=== PATIENT | female | born 1980 | race Caucasian/White ===

== ENCOUNTER → 2023-09-10 | Emergency (ER) | payer BC ==
[~2023-09-10] MED LIST: LEVALBUTEROL 1.25 MG/3 ML NEB ONE; NA CHLORIDE 0.9% 1,000 ML ONE; ONDANSETRON 4 MG/2 ML VIAL ONE; dexAMETHasone 10 MG/ML VIAL ONE
--- OUTSIDE RECORDS SUMMARY | 2023-09-10 20:27 | XMS REPORT | Continuity of Care Document ---
Author Name Unknown Address [address] [place] [address] [facility] Address [address] [place] [address] Care Team Providers Care Band Edger Name Role Phone Adelaida Crum Primary Care Physician + AARON HUNTER Attending Clinician Unavailable AARON HUNTER Attending Clinician Unavailable MAGALIS KIM Attending Clinician Unavail able Magalis Kim MD Attending Clinician [phone] Aaron Hunter MD Attending Clinician [phone] Doctor Unassigned, [place] Attending Clinician U navailable Yuri NUTRITION AND DIETETICS INSTRUCTOR-Adelaida CRENSHAW Attending Clinician Pgy2 Attending Clinician Unavailable aHley Taylor MD Attending Clinician [phone] HALEY TAYLOR Attending Clinician Unavailable Jacinta Breaux MA Attending Clinician Unavaila ble Pgy3 Attending Clinician Unavailable KAREN JUNG Attending Clinician Unavailable Karen Jung MD Attending Clinician [phone] Mary Kingsley MD Attending Clinician [phone] TEZ SANTIAGO Attending Clinician Unavailable Tez Santiago MD Attending Clinician [phone] ALYSON OLSEN Attending Clinician UnavailALYSON Shoemaker Attending Clinician Unavailabl e Provider, [facility] Temp Attending Clinician Desi HEATHER Burgos Attending Clinician Unavailable Chavez MD, Heather T Attending Clinician [phone] ENMA MURILLO Attending Clinician Unavail able Enma Carballo Attending Clinician + [facility] Attending Clinician Unavailable Jose L Carmona Attending Clinician [phone] JOSE L CURRAN Attending Clinician Unavailable ALIVIA FERNANDEZ Attending Clinician Unavailable Alivia Fernandez MD Attending Clinician [phone] Priya Stephens MD Attending Clinician [phone] PRIYA STEPHENS Attending Clinician Unavailable AARON HUNTER Admitting Clinician Unavailable HEATHER CHAVEZ Admitting Clinician Unavailable ENMA MURILLO Admitting Clinician Unavail able TEZ SANTIAGO Admitting Clinician Unavailable PRIYA STEPHENS Admitting Clinician Unavailable Payers Payer Name Policy Type Policy Number Effective Date Expirati on Date Source BCBS [facility] STATE [id number] 2022 00:00:00 Problems Condition Name Condition Details Condition Category Status Onset Date Resolution Date Last Treatment Date Treating Clinician Comments Source Other general counseling and advice for contracept estefany management Other general counseling and advice for contracept estefany management Disease Active 11-14 00:00: 00 [facility] Essential hypertensi on, benign Essential hypertensi on, benign Disease Active 11-14 00:00: 00 [facility] Morbid obesity Morbid obesity Disease Active 11-14 00:00: 00 [facility] History of tubal ligation History of tubal ligation Disease Active 11-14 00:00: 00 Overview: Formattin g of this note might be different from the original. Reports history of novasure [facility] Allergies, Adverse Reactions, Alerts Allergy Name Allergy Type Status Severity Reaction(s) Onset Date Inactive Date Treating Clinician Comments Source Azithrom ycin Propensi ty to adverse reaction s Active Nausea and/or Vomiting 10-15 00:00: 00 [facility] AZITHROM YCIN DRUG INGREDI Active N/V 10-15 00:00: 00 [facility] Social History Social Habit Start Date Stop Date Quantity Comments Source History [facility] History SDOH Alcohol Comment [facility] History SDOH Social Connections Membership [facility] Gender identity [facility] Exposure to SARS-CoV-2 (event) 2022-08-02 00:00:00 2022-08-12 08:00:00 Not sure [facility] Alcohol intake 2022-08-12 00:00:00 2022-08-12 00:00:00 Ex-drinker (finding) [facility] Tobacco use and exposure 2022-03-02 00:00:00 2022-03-02 00:00:00 Smokeless tobacco non-user [facility] History SDOH Alcohol Frequency 2022-02-27 00:00:00 2022-02-27 00:00:00 1 [facility] History SDOH Alcohol Binge 2022-02-27 00:00:00 2022-02-27 00:00:00 1 [facility] History SDOH Social Connections Phone 2022-02-27 00:00:00 2022-02-27 00:00:00 5 [facility] History SDOH Social Connections Get Together 2022-02-27 00:00:00 2022-02-27 00:00:00 1 [facility] History SDOH Social Connections Congregation 2022-02-27 00:00:00 2022-02-27 00:00:00 1 [facility] History SDOH Social Connections Meetings 2022-02-27 00:00:00 2022-02-27 00:00:00 1 [facility] History SDOH Social Connections Living 2022-02-27 00:00:00 2022-02-27 00:00:00 5 [facility] History SDOH Physical Activity DPW 2022-02-27 00:00:00 2022-02-27 00:00:00 2 [facility] History SDOH Physical Activity MPS 2022-02-27 00:00:00 2022-02-27 00:00:00 3 [facility] History SDOH Stress 2022-02-27 00:00:00 2022-02-27 00:00:00 5 [facility] History SDOH Financial 2022-02-27 00:00:00 2022-02-27 00:00:00 2 [facility] History SDOH Food Worry 2022-02-27 00:00:00 2022-02-27 00:00:00 1 [facility] History SDOH Food Scarcity 2022-02-27 00:00:00 2022-02-27 00:00:00 2 [facility] History SDOH Transport Med 2022-02-27 00:00:00 2022-02-27 00:00:00 2 [facility] History SDOH Transport Non-Med 2022-02-27 00:00:00 2022-02-27 00:00:00 2 [facility] History of Social function 2022-02-27 00:00:00 2022-02-27 00:00:00 [facility] Sex Ass[birth year] At 1980 00:00:00 1980 00:00:00 [facility] Smoking Status Start Date Stop Date Source Never smoked tobacco [facility] Medications Ordered Medication Name Filled Medication Name Start Date Stop Date Current Medication? Ordering Clinician Indication Dosage Frequency Signature (SIG) Comments Components Source HYDROCHLORO THIAZIDE 12.5 mg capsule 01-27 00:00: 00 Yes [id number] TAKE ONE CAPSULE BY MOUTH EVERY MORNING [facility] HYDROCHLORO THIAZIDE 12.5 mg capsule 01-27 00:00: 00 Yes [id number] TAKE ONE CAPSULE BY MOUTH EVERY MORNING [facility] HYDROCHLORO THIAZIDE 12.5 mg capsule 01-27 00:00: 00 Yes [id number] TAKE ONE CAPSULE BY MOUTH EVERY MORNING [facility] MELOXICAM 15 mg tablet 0 10-21 00:00: 00 Yes [id number] TAKE ONE TABLET BY MOUTH EVERY MORNING [facility] MELOXICAM 15 mg tablet 2022-0 10-21 00:00: 00 Yes [id number] TAKE ONE TABLET BY MOUTH EVERY MORNING [facility] MELOXICAM 15 mg tablet 2022-0 10-21 00:00: 00 Yes [id number] TAKE ONE TABLET BY MOUTH EVERY MORNING [facility] MELOXICAM 15 mg tablet 2022-0 329 00:00: 00 Yes [id number] TAKE ONE TABLET BY MOUTH EVERY MORNING [facility] MELOXICAM 15 mg tablet 2022-0 3 00:00: 00 Yes [id number] TAKE ONE TABLET BY MOUTH EVERY MORNING [facility] MELOXICAM 15 mg tablet 2022-0 3 00:00: 00 Yes [id number] TAKE ONE TABLET BY MOUTH EVERY MORNING [facility] cyclobenzap rine 5 mg tablet 2022-0 3 00:00: 00 Yes [id number] 5mg Take 1 tablet by mouth at bedtime. [facility] cyclobenzap rine 5 mg tablet 2022-0 3 00:00: 00 Yes [id number] 5mg Take 1 tablet by mouth at bedtime. [facility] cyclobenzap rine 5 mg tablet 2022-0 3 00:00: 00 Yes [id number] 5mg Take 1 tablet by mouth at bedtime. [facility] cyclobenzap rine 5 mg tablet 2022-0 3 00:00: 00 Yes [id number] 5mg Take 1 tablet by mouth at bedtime. [facility] cyclobenzap rine 5 mg tablet 2022-0 3 00:00: 00 Yes [id number] 5mg Take 1 tablet by mouth at bedtime. [facility] cyclobenzap rine 5 mg tablet 2022-0 326 00:00: 00 Yes [id number] 5mg Take 1 tablet by mouth at bedtime. [facility] meloxicam 15 mg tablet 3-0 1-18 00:00: 00 Yes [id number] 15mg Take 1 tablet by mouth in the morning. [facility] cyclobenzap rine 5 mg tablet 3-0 1-18 00:00: 00 Yes [id number] 5mg Take 1 tablet by mouth at bedtime. [facility] meloxicam 15 mg tablet 3-0 1-18 00:00: 00 Yes [id number] 15mg Take 1 tablet by mouth in the morning. [facility] cyclobenzap rine 5 mg tablet 3-0 1-18 00:00: 00 Yes [id number] 5mg Take 1 tablet by mouth at bedtime. [facility] meloxicam 15 mg tablet 3-0 1-18 00:00: 00 Yes [id number] 15mg Take 1 tablet by mouth in the morning. [facility] cyclobenzap rine 5 mg tablet 3-0 1-18 00:00: 00 Yes [id number] 5mg Take 1 tablet by mouth at bedtime. [facility] meloxicam 15 mg tablet 3-0 1-18 00:00: 00 Yes [id number] 15mg Take 1 tablet by mouth in the morning. [facility] cyclobenzap rine 5 mg tablet 2022-0 1-18 00:00: 00 Yes [id number] 5mg Take 1 tablet by mouth at bedtime. [facility] meloxicam 15 mg tablet 3-0 1-18 00:00: 00 Yes [id number] 15mg Take 1 tablet by mouth in the morning. [facility] cyclobenzap rine 5 mg tablet 2022-0 -18 00:00: 00 Yes [id number] 5mg Take 1 tablet by mouth at bedtime. [facility] meloxicam 15 mg tablet 2022-0 -18 00:00: 00 Yes [id number] 15mg Take 1 tablet by mouth in the morning. [facility] cyclobenzap rine 5 mg tablet 3-0 -18 00:00: 00 Yes [id number] 5mg Take 1 tablet by mouth at bedtime. [facility] medroxyPROG ESTERone (PROVERA) 10 mg tablet 2022-0 -18 00:00: 00 18 04:59 :00 No [id number] 100 20mg Take 2 tablets by mouth in the morning for 180 days. [facility] medroxyPROG ESTERone (PROVERA) 10 mg tablet 3-0 1-18 00:00: 00 18 04:59 :00 No [id number] 100 20mg Take 2 tablets by mouth in the morning for 180 days. [facility] medroxyPROG ESTERone (PROVERA) 10 mg tablet 2022-0 1-18 00:00: 00 02-09 04:59 :00 No [id number] 100 20mg Take 2 tablets by mouth in the morning for 180 days. [facility] medroxyPROG ESTERone (PROVERA) 10 mg tablet 2022-0 1-18 00:00: 00 02-09 04:59 :00 No [id number] 100 20mg Take 2 tablets by mouth in the morning for 180 days. [facility] medroxyPROG ESTERone (PROVERA) 10 mg tablet 2022-0 1-18 00:00: 00 02-09 04:59 :00 No [id number] 100 20mg Take 2 tablets by mouth in the morning for 180 days. [facility] medroxyPROG ESTERone (PROVERA) 10 mg tablet 2022-0 18 00:00: 00 02-09 04:59 :00 No [id number] 100 20mg Take 2 tablets by mouth in the morning for 180 days. [facility] medroxyPROG ESTERone (PROVERA) 10 mg tablet 0 18 00:00: 00 02-09 04:59 :00 No [id number] 100 20mg Take 2 tablets by mouth in the morning for 180 days. [facility] tranexamic acid 650 mg tablet 0 18 00:00: 00 09-12 05:59 :00 No [id number] 100 1300mg Take 2 tablets by mouth in the morning and 2 tablets at noon and 2 tablets in the evening. Do all this for 30 days. [facility] tranexamic acid 650 mg tablet 2022-0 1-18 00:00: 00 09-12 05:59 :00 No [id number] 100 1300mg Take 2 tablets by mouth in the morning and 2 tablets at noon and 2 tablets in the evening. Do all this for 30 days. [facility] tranexamic acid 650 mg tablet 2022-0 1-18 00:00: 00 09-12 05:59 :00 No [id number] 100 1300mg Take 2 tablets by mouth in the morning and 2 tablets at noon and 2 tablets in the evening. Do all this for 30 days. [facility] tranexamic acid 650 mg tablet 08-12 00:00: 00 09-12 05:59 :00 No [id number] 100 1300mg Take 2 tablets by mouth in the morning and 2 tablets at noon and 2 tablets in the evening. Do all this for 30 days. [facility] tranexamic acid 650 mg tablet 08-12 00:00: 00 09-12 05:59 :00 No [id number] 100 1300mg Take 2 tablets by mouth in the morning and 2 tablets at noon and 2 tablets in the evening. Do all this for 30 days. [facility] tranexamic acid 650 mg tablet 08-12 00:00: 00 09-12 05:59 :00 No [id number] 100 1300mg Take 2 tablets by mouth in the morning and 2 tablets at noon and 2 tablets in the evening. Do all this for 30 days. [facility] buPROPion XL (WELLBUTRIN XL) 150 mg 24 hr tablet 2021-07 00:00: 00 Yes [id number] 150mg Take 1 tablet by mouth in the morning. [facility] SERTraline 50 mg tablet 2021-07 00:00: 00 Yes [id number] 50mg Take 1 tablet by mouth in the morning. [facility] buPROPion XL (WELLBUTRIN XL) 150 mg 24 hr tablet 2021-07 00:00: 00 Yes [id number] 150mg Take 1 tablet by mouth in the morning. [facility] SERTraline 50 mg tablet 2021-07 00:00: 00 Yes [id number] 50mg Take 1 tablet by mouth in the morning. [facility] buPROPion XL (WELLBUTRIN XL) 150 mg 24 hr tablet 2021-07 00:00: 00 Yes [id number] 150mg Take 1 tablet by mouth in the morning. [facility] SERTraline 50 mg tablet 2021-07 2- 00:00: 00 Yes [id number] 50mg Take 1 tablet by mouth in the morning. [facility]LLBUTRIN XL[facility] 150 mg 24 hr tablet 2021-07 00:00: 00 Yes [id number] 150mg Take 1 tablet by mouth in the morning. [facility] SERTraline 50 mg tablet 2021-07 00:00: 00 Yes [id number] 50mg Take 1 tablet by mouth in the morning. [facility] buPROPion XL (WELLBUTRIN XL) 150 mg 24 hr tablet 2021-07 00:00: 00 Yes [id number] 150mg Take 1 tablet by mouth in the morning. [facility] SERTraline 50 mg tablet 2021-07 00:00: 00 Yes [id number] 50mg Take 1 tablet by mouth in the morning. [facility] buPROPion XL (WELLBUTRIN XL) 150 mg 24 hr tablet 2021-07 00:00: 00 Yes [id number] 150mg Take 1 tablet by mouth in the morning. [facility] SERTraline 50 mg tablet 2021-07 00:00: 00 Yes [id number] 50mg Take 1 tablet by mouth in the morning. [facility] buPROPion XL (WELLBUTRIN XL) 150 mg 24 hr tablet 2021-07 00:00: 00 Yes [id number] 150mg Take 1 tablet by mouth in the morning. [facility] SERTraline 50 mg tablet 2021-07 00:00: 00 Yes [id number] 50mg Take 1 tablet by mouth in the morning. [facility] buPROPion XL (WELLBUTRIN XL) 150 mg 24 hr tablet 2021-07 00:00: 00 Yes [id number] 150mg Take 1 tablet by mouth in the morning. [facility] SERTraline 50 mg tablet 2021-07 00:00: 00 Yes [id number] 50mg Take 1 tablet by mouth in the morning. [facility] buPROPion XL (WELLBUTRIN XL) 150 mg 24 hr tablet 2021-07 00:00: 00 Yes [id number] 150mg Take 1 tablet by mouth in the morning. [facility] SERTraline 50 mg tablet 2021-07 00:00: 00 Yes [id number] 50mg Take 1 tablet by mouth in the morning. [facility] buPROPion XL (WELLBUTRIN XL) 150 mg 24 hr tablet 2021-07 00:00: 00 Yes [id number] 150mg Take 1 tablet by mouth in the morning. [facility] SERTraline 50 mg tablet 2021-07 00:00: 00 Yes [id number] 50mg Take 1 tablet by mouth in the morning. [facility] buPROPion XL (WELLBUTRIN XL) 150 mg 24 hr tablet 2021-07 00:00: 00 Yes [id number] 150mg Take 1 tablet by mouth in the morning. [facility] SERTraline 50 mg tablet 2021-07 00:00: 00 Yes [id number] 50mg Take 1 tablet by mouth in the morning. [facility] buPROPion XL (WELLBUTRIN XL) 150 mg 24 hr tablet 2021-07 00:00: 00 Yes [id number] 150mg Take 1 tablet by mouth in the morning. [facility] SERTraline 50 mg tablet 2021-07 00:00: 00 Yes [id number] 50mg Take 1 tablet by mouth in the morning. [facility] buPROPion XL (WELLBUTRIN XL) 150 mg 24 hr tablet 2021-07 00:00: 00 Yes [id number] 150mg Take 1 tablet by mouth in the morning. [facility] SERTraline 50 mg tablet 2021-07 00:00: 00 Yes [id number] 50mg Take 1 tablet by mouth in the morning. [facility] buPROPion XL (WELLBUTRIN XL) 150 mg 24 hr tablet 2021-07 00:00: 00 Yes [id number] 150mg Take 1 tablet by mouth in the morning. [facility] SERTraline 50 mg tablet 2021-07 00:00: 00 Yes [id number] 50mg Take 1 tablet by mouth in the morning. [facility] buPROPion XL (WELLBUTRIN XL) 150 mg 24 hr tablet 2021-07 00:00: 00 Yes [id number] 150mg Take 1 tablet by mouth in the morning. [facility] SERTraline 50 mg tablet 2021-07 00:00: 00 Yes [id number] 50mg Take 1 tablet by mouth in the morning. [facility] buPROPion XL (WELLBUTRIN XL) 150 mg 24 hr tablet 2021-07 00:00: 00 Yes [id number] 150mg Take 1 tablet by mouth in the morning. [facility] SERTraline 50 mg tablet 2021-07 00:00: 00 Yes [id number] 50mg Take 1 tablet by mouth in the morning. [facility] buPROPion XL (WELLBUTRIN XL) 150 mg 24 hr tablet 2021-07 00:00: 00 Yes [id number] 150mg Take 1 tablet by mouth in the morning. [facility] SERTraline 50 mg tablet 2021-07 00:00: 00 Yes [id number] 50mg Take 1 tablet by mouth in the morning. [facility] buPROPion XL (WELLBUTRIN XL) 150 mg 24 hr tablet 2021-07 00:00: 00 Yes [id number] 150mg Take 1 tablet by mouth in the morning. [facility] SERTraline 50 mg tablet 2021-07 00:00: 00 Yes [id number] 50mg Take 1 tablet by mouth in the morning. [facility] medroxyPROG ESTERone (PROVERA) 10 mg tablet 2021-07 00:00: 00 Yes [id number] 100 20mg Take 2 tablets by mouth in the morning. [facility] tranexamic acid 650 mg tablet 2021-07 00:00: 00 Yes [id number] 100 1300mg Take 2 tablets by mouth in the morning and 2 tablets at noon and 2 tablets in the evening. [facility] medroxyPROG ESTERone (PROVERA) 10 mg tablet 2021-07 00:00: 00 Yes [id number] 100 20mg Take 2 tablets by mouth in the morning. [facility] tranexamic acid 650 mg tablet 2021-07 00:00: 00 Yes [id number] 100 1300mg Take 2 tablets by mouth in the morning and 2 tablets at noon and 2 tablets in the evening. [facility] medroxyPROG ESTERone (PROVERA) 10 mg tablet 2021-07 00:00: 00 Yes [id number] 100 20mg Take 2 tablets by mouth in the morning. [facility] tranexamic acid 650 mg tablet 2021-07 00:00: 00 Yes [id number] 100 1300mg Take 2 tablets by mouth in the morning and 2 tablets at noon and 2 tablets in the evening. [facility] medroxyPROG ESTERone (PROVERA) 10 mg tablet 2021-07 00:00: 00 Yes [id number] 100 20mg Take 2 tablets by mouth in the morning. [facility] tranexamic acid 650 mg tablet 2021-07 00:00: 00 Yes [id number] 100 1300mg Take 2 tablets by mouth in the morning and 2 tablets at noon and 2 tablets in the evening. [facility] medroxyPROG ESTERone (PROVERA) 10 mg tablet 2021-07 00:00: 00 Yes [id number] 100 20mg Take 2 tablets by mouth in the morning. [facility] tranexamic acid 650 mg tablet 2021-07 00:00: 00 Yes [id number] 100 1300mg Take 2 tablets by mouth in the morning and 2 tablets at noon and 2 tablets in the evening. [facility] medroxyPROG ESTERone (PROVERA) 10 mg tablet 2021-07 00:00: 00 Yes [id number] 100 20mg Take 2 tablets by mouth in the morning. [facility] tranexamic acid 650 mg tablet 2021-07 00:00: 00 Yes [id number] 100 1300mg Take 2 tablets by mouth in the morning and 2 tablets at noon and 2 tablets in the evening. [facility] medroxyPROG ESTERone (PROVERA) 10 mg tablet 2021-07 00:00: 00 Yes [id number] 100 20mg Take 2 tablets by mouth in the morning. [facility] tranexamic acid 650 mg tablet 2021-07 00:00: 00 Yes [id number] 100 1300mg Take 2 tablets by mouth in the morning and 2 tablets at noon and 2 tablets in the evening. [facility] medroxyPROG ESTERone (PROVERA) 10 mg tablet 2021-07 00:00: 00 Yes [id number] 100 20mg Take 2 tablets by mouth in the morning. [facility] tranexamic acid 650 mg tablet 2021-07 00:00: 00 Yes [id number] 100 1300mg Take 2 tablets by mouth in the morning and 2 tablets at noon and 2 tablets in the evening. [facility] medroxyPROG ESTERone (PROVERA) 10 mg tablet 2021-07 00:00: 00 Yes [id number] 100 20mg Take 2 tablets by mouth in the morning. [facility] tranexamic acid 650 mg tablet 2021-07 00:00: 00 Yes [id number] 100 1300mg Take 2 tablets by mouth in the morning and 2 tablets at noon and 2 tablets in the evening. [facility] medroxyPROG ESTERone (PROVERA) 10 mg tablet 2021-07 00:00: 00 Yes [id number] 100 20mg Take 2 tablets by mouth in the morning. [facility] tranexamic acid 650 mg tablet 2021-07 00:00: 00 Yes [id number] 100 1300mg Take 2 tablets by mouth in the morning and 2 tablets at noon and 2 tablets in the evening. [facility] medroxyPROG ESTERone (PROVERA) 10 mg tablet 2021-07 00:00: 00 Yes [id number] 100 20mg Take 2 tablets by mouth in the morning. [facility] tranexamic acid 650 mg tablet 2021-07 00:00: 00 Yes [id number] 100 1300mg Take 2 tablets by mouth in the morning and 2 tablets at noon and 2 tablets in the evening. [facility] medroxyPROG ESTERone (PROVERA) 10 mg tablet 2021-07 00:00: 00 Yes [id number] 100 20mg Take 2 tablets by mouth in the morning. [facility] tranexamic acid 650 mg tablet 2021-07 00:00: 00 Yes [id number] 100 1300mg Take 2 tablets by mouth in the morning and 2 tablets at noon and 2 tablets in the evening. [facility] medroxyPROG ESTERone (PROVERA) 10 mg tablet 2021-07 00:00: 00 Yes [id number] 100 20mg Take 2 tablets by mouth in the morning. [facility] tranexamic acid 650 mg tablet 2021-07 00:00: 00 Yes [id number] 100 1300mg Take 2 tablets by mouth in the morning and 2 tablets at noon and 2 tablets in the evening. [facility] medroxyPROG ESTERone (PROVERA) 10 mg tablet 2021-07 00:00: 00 Yes [id number] 100 20mg Take 2 tablets by mouth in the morning. [facility] tranexamic acid 650 mg tablet 2021-07 00:00: 00 Yes [id number] 100 1300mg Take 2 tablets by mouth in the morning and 2 tablets at noon and 2 tablets in the evening. [facility] medroxyPROG ESTERone (PROVERA) 10 mg tablet 2021-07 00:00: 00 Yes [id number] 100 20mg Take 2 tablets by mouth in the morning. [facility] tranexamic acid 650 mg tablet 2021-07 00:00: 00 Yes [id number] 100 1300mg Take 2 tablets by mouth in the morning and 2 tablets at noon and 2 tablets in the evening. [facility] medroxyPROG ESTERone (PROVERA) 10 mg tablet 2021-07 00:00: 00 Yes [id number] 100 20mg Take 2 tablets by mouth in the morning. [facility] tranexamic acid 650 mg tablet 2021-07 00:00: 00 Yes [id number] 100 1300mg Take 2 tablets by mouth in the morning and 2 tablets at noon and 2 tablets in the evening. [facility] medroxyPROG ESTERone (PROVERA) 10 mg tablet 2021-07 00:00: 00 Yes [id number] 100 20mg Take 2 tablets by mouth in the morning. [facility] tranexamic acid 650 mg tablet 2021-07 00:00: 00 Yes [id number] 100 1300mg Take 2 tablets by mouth in the morning and 2 tablets at noon and 2 tablets in the evening. [facility] medroxyPROG ESTERone (PROVERA) 10 mg tablet 2021-07 00:00: 00 Yes [id number] 100 20mg Take 2 tablets by mouth in the morning. [facility] tranexamic acid 650 mg tablet 2021-07 00:00: 00 Yes [id number] 100 1300mg Take 2 tablets by mouth in the morning and 2 tablets at noon and 2 tablets in the evening. [facility] medroxyPROG ESTERone (PROVERA) 10 mg tablet 2021-07 00:00: 00 Yes [id number] 100 20mg Take 2 tablets by mouth in the morning. [facility] tranexamic acid 650 mg tablet 2021-07 00:00: 00 Yes [id number] 100 1300mg Take 2 tablets by mouth in the morning and 2 tablets at noon and 2 tablets in the evening. [facility] medroxyPROG ESTERone (PROVERA) 10 mg tablet 2021-07 00:00: 00 Yes [id number] 100 20mg Take 2 tablets by mouth in the morning. [facility] tranexamic acid 650 mg tablet 2021-07 00:00: 00 Yes [id number] 100 1300mg Take 2 tablets by mouth in the morning and 2 tablets at noon and 2 tablets in the evening. [facility] medroxyPROG ESTERone (PROVERA) 10 mg tablet 2021-07 00:00: 00 Yes [id number] 100 20mg Take 2 tablets by mouth in the morning. [facility] tranexamic acid 650 mg tablet 2021-07 00:00: 00 Yes [id number] 100 1300mg Take 2 tablets by mouth in the morning and 2 tablets at noon and 2 tablets in the evening. [facility] hydroCHLORO thiazide 12.5 mg capsule 2021-07 00:00: 00 Yes [id number] 12.5mg Take 1 capsule by mouth in the morning. [facility] hydroCHLORO thiazide 12.5 mg capsule 2021-07 00:00: 00 Yes [id number] 12.5mg Take 1 capsule by mouth in the morning. [facility] hydroCHLORO thiazide 12.5 mg capsule 2021-07 00:00: 00 Yes [id number] 12.5mg Take 1 capsule by mouth in the morning. [facility] hydroCHLORO thiazide 12.5 mg capsule 2021-07 00:00: 00 Yes [id number] 12.5mg Take 1 capsule by mouth in the morning. [facility] hydroCHLORO thiazide 12.5 mg capsule 2021-07 00:00: 00 Yes [id number] 12.5mg Take 1 capsule by mouth in the morning. [facility] hydroCHLORO thiazide 12.5 mg capsule 2021-07 00:00: 00 Yes [id number] 12.5mg Take 1 capsule by mouth in the morning. [facility] hydroCHLORO thiazide 12.5 mg capsule 2021-07 00:00: 00 Yes [id number] 12.5mg Take 1 capsule by mouth in the morning. [facility] hydroCHLORO thiazide 12.5 mg capsule 2021-07 00:00: 00 Yes [id number] 12.5mg Take 1 capsule by mouth in the morning. [facility] hydroCHLORO thiazide 12.5 mg capsule 2021-07 00:00: 00 Yes [id number] 12.5mg Take 1 capsule by mouth in the morning. [facility] hydroCHLORO thiazide 12.5 mg capsule 2021-07 00:00: 00 Yes [id number] 12.5mg Take 1 capsule by mouth in the morning. [facility] hydroCHLORO thiazide 12.5 mg capsule 2021-0715 00:00: 00 Yes [id number] 12.5mg Take 1 capsule by mouth in the morning. [facility] hydroCHLORO thiazide 12.5 mg capsule 2021-0715 00:00: 00 Yes [id number] 12.5mg Take 1 capsule by mouth in the morning. [facility] hydroCHLORO thiazide 12.5 mg capsule 2021-0715 00:00: 00 Yes [id number] 12.5mg Take 1 capsule by mouth in the morning. [facility] medroxyPROG ESTERone (PROVERA) 10 mg tablet 2021-07 0- 00:00: 00 Yes [id number] 100 20mg Take 2 tablets by mouth in the morning. [facility] medroxyPROG ESTERone (PROVERA) 10 mg tablet 2021-07 0 00:00: 00 Yes [id number] 100 20mg Take 2 tablets by mouth in the morning. [facility] medroxyPROG ESTERone (PROVERA) 10 mg tablet 2021-07 028 00:00: 00 Yes [id number] 100 20mg Take 2 tablets by mouth in the morning. [facility] medroxyPROG ESTERone (PROVERA) 10 mg tablet 2021-07 0 00:00: 00 Yes [id number] 100 20mg Take 2 tablets by mouth in the morning. [facility] medroxyPROG ESTERone (PROVERA) 10 mg tablet 2021-07 028 00:00: 00 Yes [id number] 100 20mg Take 2 tablets by mouth in the morning. [facility] medroxyPROG ESTERone (PROVERA) 10 mg tablet 2021-07 0-28 00:00: 00 Yes [id number] 100 20mg Take 2 tablets by mouth in the morning. [facility] medroxyPROG ESTERone (PROVERA) 10 mg tablet 2021-07 0-28 00:00: 00 Yes [id number] 100 20mg Take 2 tablets by mouth in the morning. [facility] medroxyPROG ESTERone (PROVERA) 10 mg tablet 2021-07 0-28 00:00: 00 Yes [id number] 100 20mg Take 2 tablets by mouth in the morning. [facility] medroxyPROG ESTERone (PROVERA) 10 mg tablet 2021-07 0-28 00:00: 00 Yes [id number] 100 20mg Take 2 tablets by mouth in the morning. [facility] medroxyPROG ESTERone (PROVERA) 10 mg tablet 2021-07 0-28 00:00: 00 Yes [id number] 100 20mg Take 2 tablets by mouth in the morning. [facility] medroxyPROG ESTERone (PROVERA) 10 mg tablet 2021-07 0-28 00:00: 00 Yes [id number] 100 20mg Take 2 tablets by mouth in the morning. [facility] medroxyPROG ESTERone (PROVERA) 10 mg tablet 2021-07 0 00:00: 00 Yes [id number] 100 20mg Take 2 tablets by mouth in the morning. [facility] medroxyPROG ESTERone (PROVERA) 10 mg tablet 2021-07 028 00:00: 00 Yes [id number] 100 20mg Take 2 tablets by mouth in the morning. [facility] medroxyPROG ESTERone (PROVERA) 10 mg tablet 2021-07 028 00:00: 00 Yes [id number] 100 20mg Take 2 tablets by mouth in the morning. [facility] medroxyPROG ESTERone (PROVERA) 10 mg tablet 2021-07 0-28 00:00: 00 Yes [id number] 100 20mg Take 2 tablets by mouth in the morning. [facility] medroxyPROG ESTERone (PROVERA) 10 mg tablet 2021-07 0-28 00:00: 00 Yes [id number] 100 20mg Take 2 tablets by mouth in the morning. [facility] medroxyPROG ESTERone (PROVERA) 10 mg tablet 2021-07 0-28 00:00: 00 Yes [id number] 100 20mg Take 2 tablets by mouth in the morning. [facility] medroxyPROG ESTERone (PROVERA) 10 mg tablet 2021-07 0-28 00:00: 00 Yes [id number] 100 20mg Take 2 tablets by mouth in the morning. [facility] medroxyPROG ESTERone (PROVERA) 10 mg tablet 2021-07 0-28 00:00: 00 Yes [id number] 100 20mg Take 2 tablets by mouth in the morning. [facility] medroxyPROG ESTERone (PROVERA) 10 mg tablet 2021- 0-28 00:00: 00 Yes [id number] 100 20mg Take 2 tablets by mouth in the morning. [facility] medroxyPROG ESTERone (PROVERA) 10 mg tablet 2021-07 0-28 00:00: 00 Yes [id number] 100 20mg Take 2 tablets by mouth in the morning. [facility] medroxyPROG ESTERone (PROVERA) 10 mg tablet 2021- 0- 00:00: 00 Yes [id number] 100 20mg Take 2 tablets by mouth in the morning. [facility] medroxyPROG ESTERone (PROVERA) 10 mg tablet 2021-07 0 00:00: 00 Yes [id number] 100 20mg Take 2 tablets by mouth in the morning. [facility] medroxyPROG ESTERone (PROVERA) 10 mg tablet 2021-07 0 00:00: 00 Yes [id number] 100 20mg Take 2 tablets by mouth in the morning. [facility] medroxyPROG ESTERone (PROVERA) 10 mg tablet 2021-07 0 00:00: 00 Yes [id number] 100 20mg Take 2 tablets by mouth in the morning. [facility] losartan 100 mg tablet 2021-07 0-12 16:10: 28 05-06 00:00 :00 No 100mg Take 100 mg by mouth in the morning. [facility] omega 3-dha-epa-f jonatan oil (FISH OIL) 100-160-1,0 00 mg Cap 2021- 0-12 16:02: 28 Yes Take by mouth. [facility] omega 3-dha-epa-f jonatan oil (FISH OIL) 100-160-1,0 00 mg Cap 2021-07 0-12 16:02: 28 Yes Take by mouth. [facility] omega 3-dha-epa-f jonatan oil (FISH OIL) 100-160-1,0 00 mg Cap 2022-1 0-12 16:02: 28 Yes Take by mouth. [facility] omega 3-dha-epa-f jonatan oil (FISH OIL) 100-160-1,0 00 mg Cap 2022-1 0-12 16:02: 28 Yes Take by mouth. [facility] omega 3-dha-epa-f jonatan oil (FISH OIL) 100-160-1,0 00 mg Cap 2022-1 0-12 16:02: 28 Yes Take by mouth. [facility] omega 3-dha-epa-f jonatan oil (FISH OIL) 100-160-1,0 00 mg Cap 2022-1 0-12 16:02: 28 Yes Take by mouth. [facility] omega 3-dha-epa-f jonatan oil (FISH OIL) 100-160-1,0 00 mg Cap 2022-1 0-12 16:02: 28 Yes Take by mouth. [facility] omega 3-dha-epa-f jonatan oil (FISH OIL) 100-160-1,0 00 mg Cap 2022-1 0-12 16:02: 28 Yes Take by mouth. [facility] omega 3-dha-epa-f jonatan oil (FISH OIL) 100-160-1,0 00 mg Cap 2022-1 0-12 16:02: 28 Yes Take by mouth. [facility] omega 3-dha-epa-f jonatan oil (FISH OIL) 100-160-1,0 00 mg Cap 2022-1 0-12 16:02: 28 Yes Take by mouth. [facility] omega 3-dha-epa-f jonatan oil (FISH OIL) 100-160-1,0 00 mg Cap 2022-1 0-12 16:02: 28 Yes Take by mouth. [facility] omega 3-dha-epa-f jonatan oil (FISH OIL) 100-160-1,0 00 mg Cap 2022-1 0-12 16:02: 28 Yes Take by mouth. [facility] omega 3-dha-epa-f jonatan oil (FISH OIL) 100-160-1,0 00 mg Cap 2022-1 0-12 16:02: 28 Yes Take by mouth. [facility] ity [facility] omega 3-dha-epa-f jonatan oil (FISH OIL) 100-160-1,0 00 mg Cap 2022-1 0-12 16:02: 28 Yes Take by mouth. [facility] it[facility] omega 3-dha-epa-f jonatan oil (FISH OIL) 100-160-1,0 00 mg Cap 2022-1 0-12 16:02: 28 Yes Take by mouth. [facility] jonatan [facility] (FISH OIL) 100-160-1,0 00 mg Cap 2022-1 0-12 16:02: 28 Yes Take by mouth. [facility] omega 3-dha-epa-f jonatan oil (FISH OIL) 100-160-1,0 00 mg Cap 2022-1 0-12 16:02: 28 Yes Take by mouth. [facility] omega 3-dha-epa-f jonatan oil (FISH OIL) 100-160-1,0 00 mg Cap 2022-1 0-12 16:02: 28 Yes Take by mouth. [facility] omega 3-dha-epa-f jonatan oil (FISH OIL) 100-160-1,0 00 mg Cap 2022-1 0-12 16:02: 28 Yes Take by mouth. [facility] omega 3-dha-epa-f jonatan oil (FISH OIL) 100-160-1,0 00 mg Cap 2022-1 0-12 16:02: 28 Yes Take by mouth. [facility]-epa-f [place] [facility] (FISH OIL) 100-160-1,0 00 mg Cap 2022-1 0-12 16:02: 28 Yes Take by mouth. [facility]-dha-epa-f jonatan oil (FISH OIL) 100-160-1,0 00 mg Cap 2022-1 0-12 16:02: 28 Yes Take by mouth. [facility]-epa-f jonatan oil (FISH OIL) 100-160-1,0 00 mg Cap 2022-1 0-12 16:02: 28 Yes Take by mouth. [facility] omega 3-dha-epa-f jonatan oil (FISH OIL) 100-160-1,0 00 mg Cap 2021-1 0-12 16:02: 28 Yes Take by mouth. [facility] omega 3-dha-epa-f jonatan oil (FISH OIL) 100-160-1,0 00 mg Cap 2021-1 0-12 16:02: 28 Yes Take by mouth. [facility] omega 3-dha-epa-f jonatan oil (FISH OIL) 100-160-1,0 00 mg Cap 2021-1 0-12 16:02: 28 Yes Take by mouth. [facility] omega 3-dha-epa-f jonatan oil (FISH OIL) 100-160-1,0 00 mg Cap 2021- 0-12 16:02: 28 Yes Take by mouth. [facility] omeprazole 40 mg capsule 2021- 0-12 16:02: 23 Yes 40mg Take 40 mg by mouth in the morning. [facility] omeprazole 40 mg capsule 2021-1 0 16:02: 23 Yes 40mg Take 40 mg by mouth in the morning. [facility] omeprazole 40 mg capsule 2021- 012 16:02: 23 Yes 40mg Take 40 mg by mouth in the morning. [facility] omeprazole 40 mg capsule 2021-1 0-12 16:02: 23 Yes 40mg Take 40 mg by mouth in the morning. [facility] omeprazole 40 mg capsule 2021-1 0-12 16:02: 23 Yes 40mg Take 40 mg by mouth in the morning. [facility] omeprazole 40 mg capsule 2-1 0-12 16:02: 23 Yes 40mg Take 40 mg by mouth in the morning. [facility] omeprazole 40 mg capsule 2021-1 0-12 16:02: 23 Yes 40mg Take 40 mg by mouth in the morning. [facility] omeprazole 40 mg capsule 2021-1 0-12 16:02: 23 Yes 40mg Take 40 mg by mouth in the morning. [facility] omeprazole 40 mg capsule 2021- 012 16:02: 23 Yes 40mg Take 40 mg by mouth in the morning. [facility] omeprazole 40 mg capsule 2021- 012 16:02: 23 Yes 40mg Take 40 mg by mouth in the morning. [facility]1 012 16:02: 23 Yes 40mg Take 40 mg by mouth in the morning. [facility]- 0 16:02: 23 Yes 40mg Take 40 mg by mouth in the morning. [facility] omeprazole 40 mg capsule 2021- 0 16:02: 23 Yes 40mg Take 40 mg by mouth in the morning. [facility] omeprazole 40 mg capsule 2021- 0 16:02: 23 Yes 40mg Take 40 mg by mouth in the morning. [facility] omeprazole 40 mg capsule 2021- 16:02: 23 Yes 40mg Take 40 mg by mouth in the morning. [facility] omeprazole 40 mg capsule 2021- 0 16:02: 23 Yes 40mg Take 40 mg by mouth in the morning. [facility] omeprazole 40 mg capsule 2021- 16:02: 23 Yes 40mg Take 40 mg by mouth in the morning. [facility] omeprazole 40 mg capsule 2021- 16:02: 23 Yes 40mg Take 40 mg by mouth in the morning. [facility] omeprazole 40 mg capsule 2021-1 0 16:02: 23 Yes 40mg Take 40 mg by mouth in the morning. [facility] omeprazole 40 mg capsule 2021- 0 16:02: 23 Yes 40mg Take 40 mg by mouth in the morning. [facility] omeprazole 40 mg capsule 2-1 012 16:02: 23 Yes 40mg Take 40 mg by mouth in the morning. [facility]-1 012 16:02: 23 Yes 40mg Take 40 mg by mouth in the morning. [facility] omeprazole 40 mg capsule 2021-07 0-12 16:02: 23 Yes 40mg Take 40 mg by mouth in the morning. [facility] omeprazole 40 mg capsule 2021-07 0-12 16:02: 23 Yes 40mg Take 40 mg by mouth in the morning. [facility] omeprazole 40 mg capsule 2021-07 0-12 16:02: 23 Yes 40mg Take 40 mg by mouth in the morning. [facility] omeprazole 40 mg capsule 2021-07 0-12 16:02: 23 Yes 40mg Take 40 mg by mouth in the morning. [facility] omeprazole 40 mg capsule 2021-07 012 16:02: 23 Yes 40mg Take 40 mg by mouth in the morning. [facility] medroxyPROG ESTERone (PROVERA) 10 mg tablet 2021-07 0-04 00:00: 00 Yes [id number] 100 20mg Take 2 tablets by mouth in the morning. [facility] medroxyPROG ESTERone (PROVERA) 10 mg tablet 2021-07 0-04 00:00: 00 Yes [id number] 100 20mg Take 2 tablets by mouth in the morning. [facility] medroxyPROG ESTERone (PROVERA) 10 mg tablet 2021-07 0-04 00:00: 00 Yes [id number] 100 20mg Take 2 tablets by mouth in the morning. [facility] medroxyPROG ESTERone (PROVERA) 10 mg tablet 2021-07 0-04 00:00: 00 Yes [id number] 100 20mg Take 2 tablets by mouth in the morning. [facility] medroxyPROG ESTERone (PROVERA) 10 mg tablet 2021-07 0-04 00:00: 00 Yes [id number] 100 20mg Take 2 tablets by mouth in the morning. [facility] medroxyPROG ESTERone (PROVERA) 10 mg tablet 2021-07 0-04 00:00: 00 Yes [id number] 100 20mg Take 2 tablets by mouth in the morning. [facility] medroxyPROG ESTERone (PROVERA) 10 mg tablet 2021-07 0-04 00:00: 00 Yes [id number] 100 20mg Take 2 tablets by mouth in the morning. [facility] medroxyPROG ESTERone (PROVERA) 10 mg tablet 2021-07 0-04 00:00: 00 Yes [id number] 100 20mg Take 2 tablets by mouth in the morning. [facility] medroxyPROG ESTERone (PROVERA) 10 mg tablet 2021-07 0-04 00:00: 00 Yes [id number] 100 20mg Take 2 tablets by mouth in the morning. [facility] medroxyPROG ESTERone (PROVERA) 10 mg tablet 2021-07 0-04 00:00: 00 Yes [id number] 100 20mg Take 2 tablets by mouth in the morning. [facility] medroxyPROG ESTERone (PROVERA) 10 mg tablet 2021-07 0-04 00:00: 00 Yes [id number] 100 20mg Take 2 tablets by mouth in the morning. [facility] medroxyPROG ESTERone (PROVERA) 10 mg tablet 2021-07 0-04 00:00: 00 Yes [id number] 100 20mg Take 2 tablets by mouth in the morning. [facility] medroxyPROG ESTERone (PROVERA) 10 mg tablet 2021-07 0-04 00:00: 00 Yes [id number] 100 20mg Take 2 tablets by mouth in the morning. [facility] medroxyPROG ESTERone (PROVERA) 10 mg tablet 2021-07 0-04 00:00: 00 Yes [id number] 100 20mg Take 2 tablets by mouth in the morning. [facility] medroxyPROG ESTERone (PROVERA) 10 mg tablet 2021-07 0-04 00:00: 00 Yes [id number] 100 20mg Take 2 tablets by mouth in the morning. [facility] medroxyPROG ESTERone (PROVERA) 10 mg tablet 2021-07 0-04 00:00: 00 Yes [id number] 100 20mg Take 2 tablets by mouth in the morning. [facility] medroxyPROG ESTERone (PROVERA) 10 mg tablet 2021- 0-04 00:00: 00 Yes [id number] 100 20mg Take 2 tablets by mouth in the morning. [facility] medroxyPROG ESTERone (PROVERA) 10 mg tablet 2021-07 0-04 00:00: 00 Yes [id number] 100 20mg Take 2 tablets by mouth in the morning. [facility] medroxyPROG ESTERone (PROVERA) 10 mg tablet 2021-07 0-04 00:00: 00 Yes [id number] 100 20mg Take 2 tablets by mouth in the morning. [facility] medroxyPROG ESTERone (PROVERA) 10 mg tablet 2021-07 0-04 00:00: 00 Yes [id number] 100 20mg Take 2 tablets by mouth in the morning. [facility] medroxyPROG ESTERone (PROVERA) 10 mg tablet 2021-07 0-04 00:00: 00 Yes [id number] 100 20mg Take 2 tablets by mouth in the morning. [facility] medroxyPROG ESTERone (PROVERA) 10 mg tablet 2021-07 0-04 00:00: 00 Yes [id number] 100 20mg Take 2 tablets by mouth in the morning. [facility] medroxyPROG ESTERone (PROVERA) 10 mg tablet 2021-07 0-04 00:00: 00 Yes [id number] 100 20mg Take 2 tablets by mouth in the morning. [facility] medroxyPROG ESTERone (PROVERA) 10 mg tablet 2021-07 0-04 00:00: 00 Yes [id number] 100 20mg Take 2 tablets by mouth in the morning. [facility] medroxyPROG ESTERone (PROVERA) 10 mg tablet 2021-07 0-04 00:00: 00 Yes [id number] 100 20mg Take 2 tablets by mouth in the morning. [facility] medroxyPROG ESTERone (PROVERA) 10 mg tablet 2021-07 0-04 00:00: 00 Yes [id number] 100 20mg Take 2 tablets by mouth in the morning. [facility] ciprofloxac in HCl 500 mg tablet 2021-07 0-03 00:00: 00 Yes [id number] 500mg Take 1 tablet by mouth every 12 (twelve) hours. [facility] ciprofloxac in HCl 500 mg tablet 2021-1 0-03 00:00: 00 Yes [id number] 500mg Take 1 tablet by mouth every 12 (twelve) hours. [facility] ciprofloxac in HCl 500 mg tablet 2-1 0-03 00:00: 00 Yes [id number] 500mg Take 1 tablet by mouth every 12 (twelve) hours. [facility] ciprofloxac in HCl 500 mg tablet 2021-1 0-03 00:00: 00 Yes [id number] 500mg Take 1 tablet by mouth every 12 (twelve) hours. [facility] ciprofloxac in HCl 500 mg tablet 2021-1 0-03 00:00: 00 Yes [id number] 500mg Take 1 tablet by mouth every 12 (twelve) hours. [facility] ciprofloxac in HCl 500 mg tablet 2021-1 0-03 00:00: 00 Yes [id number] 500mg Take 1 tablet by mouth every 12 (twelve) hours. [facility] ciprofloxac in HCl 500 mg tablet 2021-1 0-03 00:00: 00 Yes [id number] 500mg Take 1 tablet by mouth every 12 (twelve) hours. [facility] ciprofloxac in HCl 500 mg tablet 2021-1 0-03 00:00: 00 Yes [id number] 500mg Take 1 tablet by mouth every 12 (twelve) hours. [facility] ciprofloxac in HCl 500 mg tablet 2021-1 0-03 00:00: 00 Yes [id number] 500mg Take 1 tablet by mouth every 12 (twelve) hours. [facility] ciprofloxac in HCl 500 mg tablet 2021-1 0-03 00:00: 00 Yes [id number] 500mg Take 1 tablet by mouth every 12 (twelve) hours. [facility] ciprofloxac in HCl 500 mg tablet 2-1 0-03 00:00: 00 Yes [id number] 500mg Take 1 tablet by mouth every 12 (twelve) hours. [facility] ciprofloxac in HCl 500 mg tablet 2022-1 0-03 00:00: 00 Yes [id number] 500mg Take 1 tablet by mouth every 12 (twelve) hours. [facility] ciprofloxac in HCl 500 mg tablet 2021-1 0-03 00:00: 00 Yes [id number] 500mg Take 1 tablet by mouth every 12 (twelve) hours. [facility] ciprofloxac in HCl 500 mg tablet 2021-1 0-03 00:00: 00 Yes [id number] 500mg Take 1 tablet by mouth every 12 (twelve) hours. [facility] ciprofloxac in HCl 500 mg tablet 2021-1 0-03 00:00: 00 Yes [id number] 500mg Take 1 tablet by mouth every 12 (twelve) hours. [facility] ciprofloxac in HCl 500 mg tablet 2021-1 0-03 00:00: 00 Yes [id number] 500mg Take 1 tablet by mouth every 12 (twelve) hours. [facility] ciprofloxac in HCl 500 mg tablet 2021- 0-03 00:00: 00 Yes [id number] 500mg Take 1 tablet by mouth every 12 (twelve) hours. [facility] ciprofloxac in HCl 500 mg tablet 2021-1 0-03 00:00: 00 Yes [id number] 500mg Take 1 tablet by mouth every 12 (twelve) hours. [facility] ciprofloxac in HCl 500 mg tablet 2021-1 0-03 00:00: 00 Yes [id number] 500mg Take 1 tablet by mouth every 12 (twelve) hours. [facility] ciprofloxac in HCl 500 mg tablet 2021-1 0-03 00:00: 00 Yes [id number] 500mg Take 1 tablet by mouth every 12 (twelve) hours. [facility] ciprofloxac in HCl 500 mg tablet 2021-1 0-03 00:00: 00 Yes [id number] 500mg Take 1 tablet by mouth every 12 (twelve) hours. [facility] ciprofloxac in HCl 500 mg tablet 2021-1 0-03 00:00: 00 Yes [id number] 500mg Take 1 tablet by mouth every 12 (twelve) hours. [facility] ciprofloxac in HCl 500 mg tablet 2021-07 0-03 00:00: 00 Yes [id number] 500mg Take 1 tablet by mouth every 12 (twelve) hours. [facility] ciprofloxac in HCl 500 mg tablet 2021-07 0-03 00:00: 00 Yes [id number] 500mg Take 1 tablet by mouth every 12 (twelve) hours. [facility] ciprofloxac in HCl 500 mg tablet 2021-07 0 00:00: 00 Yes [id number] 500mg Take 1 tablet by mouth every 12 (twelve) hours. [facility] ciprofloxac in HCl 500 mg tablet 2021-07 0- 00:00: 00 Yes [id number] 500mg Take 1 tablet by mouth every 12 (twelve) hours. [facility] losartan 100 mg tablet 04-08 14:54: 22 Yes 100mg Take 100 mg by mouth in the morning. [facility] omeprazole 40 mg capsule 04-08 14:54: 22 Yes 40mg Take 40 mg by mouth in the morning. [facility] omega 3-dha-epa-f jonatan oil (FISH OIL) 100-160-1,0 00 mg Cap 04-08 14:54: 22 Yes Take by mouth. [facility] dicyclomine 10 mg capsule 04-08 00:00: 00 Yes [id number] 10mg Take 1 capsule by mouth 4 (four) times daily as needed for Abdominal pain. [facility] hydroCHLORO thiazide 12.5 mg capsule 04-08 00:00: 00 06-08 05:59 :00 No [id number] 12.5mg Take 1 capsule by mouth in the morning for 60 days. [facility] hydroCHLORO thiazide 12.5 mg capsule 04-08 00:00: 00 06-08 05:59 :00 No [id number] 12.5mg Take 1 capsule by mouth in the morning for 60 days. [facility] hydroCHLORO thiazide 12.5 mg capsule 04-08 00:00: 00 06-08 05:59 :00 No [id number] 12.5mg Take 1 capsule by mouth in the morning for 60 days. [facility] hydroCHLORO thiazide 12.5 mg capsule 04-08 00:00: 00 06-08 05:59 :00 No [id number] 12.5mg Take 1 capsule by mouth in the morning for 60 days. [facility] oxybutynin (DITROPAN XL) 10 mg 24 hr tablet 03-23 00:00: 00 Yes [id number] 10mg Take 1 tablet by mouth in the morning. [facility] medroxyPROG ESTERone (PROVERA) 10 mg tablet 03-02 00:00: 00 05-27 04:59 :00 No [id number] 100 Take 2 tablets by mouth 3 (three) times daily for 7 days, THEN 1 tablet daily for 78 days. [facility] medroxyPROG ESTERone (PROVERA) 10 mg tablet 03-02 00:00: 00 04-27 00:00 :00 No [id number] 100 Take 2 tablets by mouth 3 (three) times daily for 7 days, THEN 1 tablet daily for 78 days. [facility] medroxyPROG ESTERone (PROVERA) 10 mg tablet 03-02 00:00: 00 04-27 00:00 :00 No [id number] 100 Take 2 tablets by mouth 3 (three) times daily for 7 days, THEN 1 tablet daily for 78 days. [facility] losartan 100 mg tablet 02-27 11:35: 05 Yes 100mg Take 100 mg by mouth in the morning. [facility] omeprazole 40 mg capsule 02-27 11:35: 05 Yes 40mg Take 40 mg by mouth in the morning. [facility] omega 3-dha-epa-f jonatan oil (FISH OIL) 100-160-1,0 00 mg Cap 02-27 11:35: 05 Yes Take by mouth. [facility] ondansetron 4 mg tablet 02-27 00:00: 00 Yes [id number] 4mg Take 1 tablet by mouth every 8 (eight) hours as needed for Nausea and Vomiting (N/V). [facility] ondansetron 4 mg tablet 02-27 00:00: 00 Yes [id number] 4mg Take 1 tablet by mouth every 8 (eight) hours as needed for Nausea and Vomiting (N/V). [facility] ondansetron 4 mg tablet 02-27 00:00: 00 Yes [id number] 4mg Take 1 tablet by mouth every 8 (eight) hours as needed for Nausea and Vomiting (N/V). [facility] ondansetron 4 mg tablet 02-27 00:00: 00 Yes [id number] 4mg Take 1 tablet by mouth every 8 (eight) hours as needed for Nausea and Vomiting (N/V). [facility] ondansetron 4 mg tablet 02-27 00:00: 00 Yes [id number] 4mg Take 1 tablet by mouth every 8 (eight) hours as needed for Nausea and Vomiting (N/V). [facility] ondansetron 4 mg tablet 02-27 00:00: 00 Yes [id number] 4mg Take 1 tablet by mouth every 8 (eight) hours as needed for Nausea and Vomiting (N/V). [facility] ondansetron 4 mg tablet 02-27 00:00: 00 Yes [id number] 4mg Take 1 tablet by mouth every 8 (eight) hours as needed for Nausea and Vomiting (N/V). [facility] oxybutynin (DITROPAN XL) 10 mg 24 hr tablet 02-27 00:00: 00 Yes [id number] 10mg Take 1 tablet by mouth in the morning. [facility] ondansetron 4 mg tablet 02-27 00:00: 00 Yes [id number] 4mg Take 1 tablet by mouth every 8 (eight) hours as needed for Nausea and Vomiting (N/V). [facility] buPROPion XL (WELLBUTRIN XL) 150 mg 24 hr tablet 02-27 00:00: 00 Yes [id number] 150mg Take 1 tablet by mouth in the morning. [facility] SERTraline 50 mg tablet 02-27 00:00: 00 Yes [id number] 50mg Take 1 tablet by mouth in the morning. [facility] ondansetron 4 mg tablet 02-27 00:00: 00 Yes [id number] 4mg Take 1 tablet by mouth every 8 (eight) hours as needed for Nausea and Vomiting (N/V). [facility] buPROPion XL (WELLBUTRIN XL) 150 mg 24 hr tablet 02-27 00:00: 00 Yes [id number] 150mg Take 1 tablet by mouth in the morning. [facility] SERTraline 50 mg tablet 02-27 00:00: 00 Yes [id number] 50mg Take 1 tablet by mouth in the morning. [facility] ondansetron 4 mg tablet 02-27 00:00: 00 Yes [id number] 4mg Take 1 tablet by mouth every 8 (eight) hours as needed for Nausea and Vomiting (N/V). [facility] buPROPion XL (WELLBUTRIN XL) 150 mg 24 hr tablet 02-27 00:00: 00 Yes [id number] 150mg Take 1 tablet by mouth in the morning. [facility] SERTraline 50 mg tablet 02-27 00:00: 00 Yes [id number] 50mg Take 1 tablet by mouth in the morning. [facility] ondansetron 4 mg tablet 02-27 00:00: 00 Yes [id number] 4mg Take 1 tablet by mouth every 8 (eight) hours as needed for Nausea and Vomiting (N/V). [facility] buPROPion XL (WELLBUTRIN XL) 150 mg 24 hr tablet 02-27 00:00: 00 Yes [id number] 150mg Take 1 tablet by mouth in the morning. [facility] SERTraline 50 mg tablet 0 8 00:00: 00 Yes [id number] 50mg Take 1 tablet by mouth in the morning. [facility] ondansetron 4 mg tablet 2021-0 8-05 00:00: 00 Yes [id number] 4mg Take 1 tablet by mouth every 8 (eight) hours as needed for Nausea and Vomiting (N/V). [facility] buPROPion XL (WELLBUTRIN XL) 150 mg 24 hr tablet 2021-0 8-05 00:00: 00 Yes [id number] 150mg Take 1 tablet by mouth in the morning. [facility] SERTraline 50 mg tablet 0 8-05 00:00: 00 Yes [id number] 50mg Take 1 tablet by mouth in the morning. [facility] ondansetron 4 mg tablet 2021-0 8-05 00:00: 00 Yes [id number] 4mg Take 1 tablet by mouth every 8 (eight) hours as needed for Nausea and Vomiting (N/V). [facility] buPROPion XL (WELLBUTRIN XL) 150 mg 24 hr tablet 2021-0 8-05 00:00: 00 Yes [id number] 150mg Take 1 tablet by mouth in the morning. [facility] SERTraline 50 mg tablet 2021-0 8-05 00:00: 00 Yes [id number] 50mg Take 1 tablet by mouth in the morning. [facility] ondansetron 4 mg tablet 2021-0 8-05 00:00: 00 Yes [id number] 4mg Take 1 tablet by mouth every 8 (eight) hours as needed for Nausea and Vomiting (N/V). [facility] buPROPion XL (WELLBUTRIN XL) 150 mg 24 hr tablet 2021-0 8-05 00:00: 00 Yes [id number] 150mg Take 1 tablet by mouth in the morning. [facility] SERTraline 50 mg tablet 2021-0 8-05 00:00: 00 Yes [id number] 50mg Take 1 tablet by mouth in the morning. [facility] ondansetron 4 mg tablet 2021-0 8-05 00:00: 00 Yes [id number] 4mg Take 1 tablet by mouth every 8 (eight) hours as needed for Nausea and Vomiting (N/V). [facility] ondansetron 4 mg tablet 2021-0 8-05 00:00: 00 Yes [id number] 4mg Take 1 tablet by mouth every 8 (eight) hours as needed for Nausea and Vomiting (N/V). [facility] ondansetron 4 mg tablet 2021-0 8-05 00:00: 00 Yes [id number] 4mg Take 1 tablet by mouth every 8 (eight) hours as needed for Nausea and Vomiting (N/V). [facility] ondansetron 4 mg tablet 2021-0 8-05 00:00: 00 Yes [id number] 4mg Take 1 tablet by mouth every 8 (eight) hours as needed for Nausea and Vomiting (N/V). [facility] ondansetron 4 mg tablet 2021-0 8-05 00:00: 00 Yes [id number] 4mg Take 1 tablet by mouth every 8 (eight) hours as needed for Nausea and Vomiting (N/V). [facility] ondansetron 4 mg tablet 2021-0 8-05 00:00: 00 Yes [id number] 4mg Take 1 tablet by mouth every 8 (eight) hours as needed for Nausea and Vomiting (N/V). [facility] ondansetron 4 mg tablet 2021-0 8-05 00:00: 00 Yes [id number] 4mg Take 1 tablet by mouth every 8 (eight) hours as needed for Nausea and Vomiting (N/V). [facility] ondansetron 4 mg tablet 2021-0 8-05 00:00: 00 Yes [id number] 4mg Take 1 tablet by mouth every 8 (eight) hours as needed for Nausea and Vomiting (N/V). [facility] ondansetron 4 mg tablet 2-0 8-05 00:00: 00 Yes [id number] 4mg Take 1 tablet by mouth every 8 (eight) hours as needed for Nausea and Vomiting (N/V). [facility] ondansetron 4 mg tablet 2-0 8-05 00:00: 00 Yes [id number] 4mg Take 1 tablet by mouth every 8 (eight) hours as needed for Nausea and Vomiting (N/V). [facility] ondansetron 4 mg tablet 8 00:00: 00 Yes [id number] 4mg Take 1 tablet by mouth every 8 (eight) hours as needed for Nausea and Vomiting (N/V). [facility] ondansetron 4 mg tablet 02-27 00:00: 00 Yes [id number] 4mg Take 1 tablet by mouth every 8 (eight) hours as needed for Nausea and Vomiting (N/V). [facility] ondansetron 4 mg tablet 02-27 00:00: 00 Yes [id number] 4mg Take 1 tablet by mouth every 8 (eight) hours as needed for Nausea and Vomiting (N/V). [facility] ondansetron 4 mg tablet 02-27 00:00: 00 Yes [id number] 4mg Take 1 tablet by mouth every 8 (eight) hours as needed for Nausea and Vomiting (N/V). [facility] ondansetron 4 mg tablet 02-27 00:00: 00 Yes [id number] 4mg Take 1 tablet by mouth every 8 (eight) hours as needed for Nausea and Vomiting (N/V). [facility] buPROPion XL (WELLBUTRIN XL) 150 mg 24 hr tablet 02-27 00:00: 00 06-27 00:00 :00 No [id number] 150mg Take 1 tablet by mouth in the morning. [facility] SERTraline 50 mg tablet 02-27 00:00: 00 06-27 00:00 :00 No [id number] 50mg Take 1 tablet by mouth in the morning. [facility] buPROPion XL (WELLBUTRIN XL) 150 mg 24 hr tablet 02-27 00:00: 00 06-27 00:00 :00 No [id number] 150mg Take 1 tablet by mouth in the morning. [facility] SERTraline 50 mg tablet 02-27 00:00: 00 06-27 00:00 :00 No [id number] 50mg Take 1 tablet by mouth in the morning. [facility] oxybutynin (DITROPAN XL) 10 mg 24 hr tablet 02-27 00:00: 00 03-21 00:00 :00 No [id number] 10mg Take 1 tablet by mouth in the morning. [facility] traMADoL 50 mg tablet 02-27 00:00: 03-07 04:59 :00 No [id number] 50mg Take 1 tablet by mouth every 6 (six) hours as needed for Pain (scale 7-10) for up to 7 days. Indication s: acute pain [facility] traMADoL 50 mg tablet 02-27 00:00: 00 03-07 04:59 :00 No [id number] 50mg Take 1 tablet by mouth every 6 (six) hours as needed for Pain (scale 7-10) for up to 7 days. Indication s: acute pain [facility] norethindro ne 0.35 mg tablet 02-12 00:00: 00 03-15 04:59 :00 No [id number] .35mg Take 1 tablet by mouth in the morning for 30 days. [facility] norethindro ne 0.35 mg tablet 02-12 00:00: 00 03-15 04:59 :00 No [id number] .35mg Take 1 tablet by mouth in the morning for 30 days. [facility] medroxyPROG ESTERone (PROVERA) 10 mg tablet 12-11 00:00: 00 Yes [id number] Take 1 pill by mouth 3 times per day for 7 days. After day 7, take 1 pill by mouth daily only. [facility] medroxyPROG ESTERone (PROVERA) 10 mg tablet 12-11 00:00: 00 Yes [id number] Take 1 pill by mouth 3 times per day for 7 days. After day 7, take 1 pill by mouth daily only. [facility] medroxyPROG ESTERone (PROVERA) 10 mg tablet 12-11 00:00: 00 Yes [id number] Take 1 pill by mouth 3 times per day for 7 days. After day 7, take 1 pill by mouth daily only. [facility] medroxyPROG ESTERone (PROVERA) 10 mg tablet 2021-0 12-11 00:00: 00 Yes [id number] Take 1 pill by mouth 3 times per day for 7 days. After day 7, take 1 pill by mouth daily only. [facility] medroxyPROG ESTERone (PROVERA) 10 mg tablet 0 12-11 00:00: 00 Yes [id number] Take 1 pill by mouth 3 times per day for 7 days. After day 7, take 1 pill by mouth daily only. [facility] medroxyPROG ESTERone (PROVERA) 10 mg tablet 0 12-11 00:00: 00 Yes [id number] Take 1 pill by mouth 3 times per day for 7 days. After day 7, take 1 pill by mouth daily only. [facility] medroxyPROG ESTERone (PROVERA) 10 mg tablet 2021-0 12-11 00:00: 00 Yes [id number] Take 1 pill by mouth 3 times per day for 7 days. After day 7, take 1 pill by mouth daily only. [facility] medroxyPROG ESTERone (PROVERA) 10 mg tablet 0 12-11 00:00: 00 Yes [id number] Take 1 pill by mouth 3 times per day for 7 days. After day 7, take 1 pill by mouth daily only. [facility] medroxyPROG ESTERone (PROVERA) 10 mg tablet 2021-0 12-11 00:00: 00 Yes [id number] Take 1 pill by mouth 3 times per day for 7 days. After day 7, take 1 pill by mouth daily only. [facility] medroxyPROG ESTERone (PROVERA) 10 mg tablet 2021-0 12-11 00:00: 00 Yes [id number] Take 1 pill by mouth 3 times per day for 7 days. After day 7, take 1 pill by mouth daily only. [facility] medroxyPROG ESTERone (PROVERA) 10 mg tablet 2021-0 - 00:00: 00 Yes [id number] Take 1 pill by mouth 3 times per day for 7 days. After day 7, take 1 pill by mouth daily only. [facility] medroxyPROG ESTERone (PROVERA) 10 mg tablet 0 12-11 00:00: 00 Yes [id number] Take 1 pill by mouth 3 times per day for 7 days. After day 7, take 1 pill by mouth daily only. [facility] medroxyPROG ESTERone (PROVERA) 10 mg tablet 0 12-11 00:00: 00 Yes [id number] Take 1 pill by mouth 3 times per day for 7 days. After day 7, take 1 pill by mouth daily only. [facility] medroxyPROG ESTERone (PROVERA) 10 mg tablet 0 12-11 00:00: 00 Yes [id number] Take 1 pill by mouth 3 times per day for 7 days. After day 7, take 1 pill by mouth daily only. [facility] medroxyPROG ESTERone (PROVERA) 10 mg tablet 0 12-11 00:00: 00 Yes [id number] Take 1 pill by mouth 3 times per day for 7 days. After day 7, take 1 pill by mouth daily only. [facility] medroxyPROG ESTERone (PROVERA) 10 mg tablet 0 12-11 00:00: 00 Yes [id number] Take 1 pill by mouth 3 times per day for 7 days. After day 7, take 1 pill by mouth daily only. [facility] medroxyPROG ESTERone (PROVERA) 10 mg tablet 0 12-11 00:00: 00 Yes [id number] Take 1 pill by mouth 3 times per day for 7 days. After day 7, take 1 pill by mouth daily only. [facility] medroxyPROG ESTERone (PROVERA) 10 mg tablet 0 12-11 00:00: 00 Yes [id number] Take 1 pill by mouth 3 times per day for 7 days. After day 7, take 1 pill by mouth daily only. [facility] medroxyPROG ESTERone (PROVERA) 10 mg tablet 0 12-11 00:00: 00 Yes [id number] Take 1 pill by mouth 3 times per day for 7 days. After day 7, take 1 pill by mouth daily only. [facility] medroxyPROG ESTERone (PROVERA) 10 mg tablet 0 12-11 00:00: 00 Yes [id number] Take 1 pill by mouth 3 times per day for 7 days. After day 7, take 1 pill by mouth daily only. [facility] medroxyPROG ESTERone (PROVERA) 10 mg tablet 0 - 00:00: 00 Yes [id number] Take 1 pill by mouth 3 times per day for 7 days. After day 7, take 1 pill by mouth daily only. [facility] medroxyPROG ESTERone (PROVERA) 10 mg tablet 0 12-11 00:00: 00 Yes [id number] Take 1 pill by mouth 3 times per day for 7 days. After day 7, take 1 pill by mouth daily only. [facility] medroxyPROG ESTERone (PROVERA) 10 mg tablet 2021-0 12-11 00:00: 00 Yes [id number] Take 1 pill by mouth 3 times per day for 7 days. After day 7, take 1 pill by mouth daily only. [facility] medroxyPROG ESTERone (PROVERA) 10 mg tablet 0 12-11 00:00: 00 Yes [id number] Take 1 pill by mouth 3 times per day for 7 days. After day 7, take 1 pill by mouth daily only. [facility] medroxyPROG ESTERone (PROVERA) 10 mg tablet 2021-0 12-11 00:00: 00 Yes [id number] Take 1 pill by mouth 3 times per day for 7 days. After day 7, take 1 pill by mouth daily only. [facility] medroxyPROG ESTERone (PROVERA) 10 mg tablet 2021-0 12-11 00:00: 00 Yes [id number] Take 1 pill by mouth 3 times per day for 7 days. After day 7, take 1 pill by mouth daily only. [facility] medroxyPROG ESTERone (PROVERA) 10 mg tablet 2021-0 -19 00:00: 00 Yes [id number] Take 1 pill by mouth 3 times per day for 7 days. After day 7, take 1 pill by mouth daily only. [facility] medroxyPROG ESTERone (PROVERA) 10 mg tablet 0 12-11 00:00: 00 Yes [id number] Take 1 pill by mouth 3 times per day for 7 days. After day 7, take 1 pill by mouth daily only. [facility] medroxyPROG ESTERone (PROVERA) 10 mg tablet 2021-0 12-11 00:00: 00 Yes [id number] Take 1 pill by mouth 3 times per day for 7 days. After day 7, take 1 pill by mouth daily only. [facility] medroxyPROG ESTERone (PROVERA) 10 mg tablet 2021-0 12-11 00:00: 00 Yes [id number] Take 1 pill by mouth 3 times per day for 7 days. After day 7, take 1 pill by mouth daily only. [facility] medroxyPROG ESTERone (PROVERA) 10 mg tablet 2021-0 12-11 00:00: 00 Yes [id number] Take 1 pill by mouth 3 times per day for 7 days. After day 7, take 1 pill by mouth daily only. [facility] medroxyPROG ESTERone (PROVERA) 10 mg tablet 2021-0 12-11 00:00: 00 Yes [id number] Take 1 pill by mouth 3 times per day for 7 days. After day 7, take 1 pill by mouth daily only. [facility] medroxyPROG ESTERone (PROVERA) 10 mg tablet 2021-0 23 00:00: 00 Yes [id number] 10mg Take 1 tablet by mouth daily. [facility] medroxyPROG ESTERone (PROVERA) 10 mg tablet 2-0 -23 00:00: 00 Yes [id number] 10mg Take 1 tablet by mouth daily. [facility] medroxyPROG ESTERone (PROVERA) 10 mg tablet 2-0 -23 00:00: 00 Yes [id number] 10mg Take 1 tablet by mouth daily. [facility] medroxyPROG ESTERone (PROVERA) 10 mg tablet 2-0 -23 00:00: 00 Yes [id number] 10mg Take 1 tablet by mouth daily. [facility] medroxyPROG ESTERone (PROVERA) 10 mg tablet 2021-0 323 00:00: 00 Yes [id number] 10mg Take 1 tablet by mouth daily. [facility] medroxyPROG ESTERone (PROVERA) 10 mg tablet 2-0 323 00:00: 00 Yes [id number] 10mg Take 1 tablet by mouth daily. [facility] medroxyPROG ESTERone (PROVERA) 10 mg tablet 2021-0 3 00:00: 00 Yes [id number] 10mg Take 1 tablet by mouth daily. [facility] medroxyPROG ESTERone (PROVERA) 10 mg tablet 2021-0 10-15 00:00: 00 Yes [id number] 10mg Take 1 tablet by mouth daily. [facility] medroxyPROG ESTERone (PROVERA) 10 mg tablet 2-0 10-15 00:00: 00 Yes [id number] 10mg Take 1 tablet by mouth daily. [facility] medroxyPROG ESTERone (PROVERA) 10 mg tablet 2021-0 10-15 00:00: 00 Yes [id number] 10mg Take 1 tablet by mouth daily. [facility] ibuprofen 800 mg tablet 2021-0 10-15 00:00: 00 Yes [id number] 800mg Take 1 tablet by mouth every 8 (eight) hours. [facility] medroxyPROG ESTERone (PROVERA) 10 mg tablet 2-0 323 00:00: 00 Yes [id number] 10mg Take 1 tablet by mouth daily. [facility] ibuprofen 800 mg tablet 2-0 323 00:00: 00 Yes [id number] 800mg Take 1 tablet by mouth every 8 (eight) hours. [facility] medroxyPROG ESTERone (PROVERA) 10 mg tablet 2-0 323 00:00: 00 Yes [id number] 10mg Take 1 tablet by mouth daily. [facility] ibuprofen 800 mg tablet 2-0 3-23 00:00: 00 Yes [id number] 800mg Take 1 tablet by mouth every 8 (eight) hours. [facility] medroxyPROG ESTERone (PROVERA) 10 mg tablet 2-0 323 00:00: 00 Yes [id number] 10mg Take 1 tablet by mouth daily. [facility] ibuprofen 800 mg tablet 2-0 323 00:00: 00 Yes [id number] 800mg Take 1 tablet by mouth every 8 (eight) hours. [facility] medroxyPROG ESTERone (PROVERA) 10 mg tablet 2-0 323 00:00: 00 Yes [id number] 10mg Take 1 tablet by mouth daily. [facility] ibuprofen 800 mg tablet 2-0 323 00:00: 00 Yes [id number] 800mg Take 1 tablet by mouth every 8 (eight) hours. [facility] medroxyPROG ESTERone (PROVERA) 10 mg tablet 2021-0 23 00:00: 00 Yes [id number] 10mg Take 1 tablet by mouth daily. [facility] ibuprofen 800 mg tablet 2-0 3 00:00: 00 Yes [id number] 800mg Take 1 tablet by mouth every 8 (eight) hours. [facility] medroxyPROG ESTERone (PROVERA) 10 mg tablet 2021-0 323 00:00: 00 Yes [id number] 10mg Take 1 tablet by mouth daily. [facility] ibuprofen 800 mg tablet 2-0 323 00:00: 00 Yes [id number] 800mg Take 1 tablet by mouth every 8 (eight) hours. [facility] medroxyPROG ESTERone (PROVERA) 10 mg tablet 2-0 323 00:00: 00 Yes [id number] 10mg Take 1 tablet by mouth daily. [facility] ibuprofen 800 mg tablet 2-0 3-23 00:00: 00 Yes [id number] 800mg Take 1 tablet by mouth every 8 (eight) hours. [facility] medroxyPROG ESTERone (PROVERA) 10 mg tablet 2-0 3-23 00:00: 00 Yes [id number] 10mg Take 1 tablet by mouth daily. [facility] ibuprofen 800 mg tablet 2-0 3-23 00:00: 00 Yes [id number] 800mg Take 1 tablet by mouth every 8 (eight) hours. [facility] medroxyPROG ESTERone (PROVERA) 10 mg tablet 2021-0 10-15 00:00: 00 Yes [id number] 10mg Take 1 tablet by mouth daily. [facility] ibuprofen 800 mg tablet 2021-0 10-15 00:00: 00 Yes [id number] 800mg Take 1 tablet by mouth every 8 (eight) hours. [facility] medroxyPROG ESTERone (PROVERA) 10 mg tablet 2021-0 10-15 00:00: 00 Yes [id number] 10mg Take 1 tablet by mouth daily. [facility] ibuprofen 800 mg tablet 2021-0 10-15 00:00: 00 Yes [id number] 800mg Take 1 tablet by mouth every 8 (eight) hours. [facility] medroxyPROG ESTERone (PROVERA) 10 mg tablet 2021-0 10-15 00:00: 00 Yes [id number] 10mg Take 1 tablet by mouth daily. [facility] ibuprofen 800 mg tablet 2021-0 10-15 00:00: 00 Yes [id number] 800mg Take 1 tablet by mouth every 8 (eight) hours. [facility] medroxyPROG ESTERone (PROVERA) 10 mg tablet 2021-0 10-15 00:00: 00 Yes [id number] 10mg Take 1 tablet by mouth daily. [facility] medroxyPROG ESTERone (PROVERA) 10 mg tablet 2021-0 10-15 00:00: 00 Yes [id number] 10mg Take 1 tablet by mouth daily. [facility] medroxyPROG ESTERone (PROVERA) 10 mg tablet 2-0 323 00:00: 00 Yes [id number] 10mg Take 1 tablet by mouth daily. [facility] medroxyPROG ESTERone (PROVERA) 10 mg tablet 2-0 323 00:00: 00 Yes [id number] 10mg Take 1 tablet by mouth daily. [facility] medroxyPROG ESTERone (PROVERA) 10 mg tablet 2-0 3-23 00:00: 00 Yes [id number] 10mg Take 1 tablet by mouth daily. [facility] medroxyPROG ESTERone (PROVERA) 10 mg tablet 10-15 00:00: 00 Yes [id number] 10mg Take 1 tablet by mouth daily. [facility] medroxyPROG ESTERone (PROVERA) 10 mg tablet 0 10-15 00:00: 00 Yes [id number] 10mg Take 1 tablet by mouth daily. [facility] medroxyPROG ESTERone (PROVERA) 10 mg tablet 0 10-15 00:00: 00 Yes [id number] 10mg Take 1 tablet by mouth daily. [facility] medroxyPROG ESTERone (PROVERA) 10 mg tablet 10-15 00:00: 00 Yes [id number] 10mg Take 1 tablet by mouth daily. [facility] medroxyPROG ESTERone (PROVERA) 10 mg tablet 0 10-15 00:00: 00 Yes [id number] 10mg Take 1 tablet by mouth daily. [facility] medroxyPROG ESTERone (PROVERA) 10 mg tablet 0 10-15 00:00: 00 Yes [id number] 10mg Take 1 tablet by mouth daily. [facility] ibuprofen 800 mg tablet 10-15 00:00: 00 08-12 00:00 :00 No [id number] 800mg Take 1 tablet by mouth every 8 (eight) hours. [facility] Immunizations Ordered Immunization Name Filled Immunization Name Date Status Comments Source SARS-COV-2 COVID-19 MODERNA VACCINE 2020-09-29 00:00:00 Completed [facility] SARS-COV-2 COVID-19 MODERNA 12+ YRS VACCINE 2020-09-29 00:00:00 Completed [facility] SARS-COV-2 COVID-19 MODERNA 12+ YRS VACCINE 2020-09-29 00:00:00 Completed [facility] SARS-COV-2 COVID-19 MODERNA 12+ YRS VACCINE 2020-09-29 00:00:00 Completed [facility] SARS-COV-2 COVID-19 MODERNA 12+ YRS VACCINE 2020-09-29 00:00:00 Completed [facility] SARS-COV-2 COVID-19 MODERNA 12+ YRS VACCINE 2020-09-29 00:00:00 Completed [facility] SARS-COV-2 COVID-19 MODERNA 12+ YRS VACCINE 2020-09-29 00:00:00 Completed [facility] SARS-COV-2 COVID-19 MODERNA 12+ YRS VACCINE 2020-09-29 00:00:00 Completed [facility] SARS-COV-2 COVID-19 MODERNA 12+ YRS VACCINE 2020-09-29 00:00:00 Completed [facility] SARS-COV-2 COVID-19 MODERNA 12+ YRS VACCINE 2020-09-29 00:00:00 Completed [facility] SARS-COV-2 COVID-19 MODERNA 12+ YRS VACCINE 2020-09-29 00:00:00 Completed [facility] SARS-COV-2 COVID-19 MODERNA 12+ YRS VACCINE 2020-09-29 00:00:00 Completed [facility] SARS-COV-2 COVID-19 MODERNA 12+ YRS VACCINE 2020-09-29 00:00:00 Completed [facility] SARS-COV-2 COVID-19 MODERNA 12+ YRS VACCINE 2020-09-29 00:00:00 Completed [facility] SARS-COV-2 COVID-19 MODERNA 12+ YRS VACCINE 2020-09-29 00:00:00 Completed [facility] SARS-COV-2 COVID-19 MODERNA 12+ YRS VACCINE 2020-09-29 00:00:00 Completed [facility] SARS-COV-2 COVID-19 MODERNA 12+ YRS VACCINE 2020-09-29 00:00:00 Completed [facility] SARS-COV-2 COVID-19 MODERNA 12+ YRS VACCINE 2020-09-29 00:00:00 Completed [facility] SARS-COV-2 COVID-19 MODERNA 12+ YRS VACCINE 2020-09-29 00:00:00 Completed [facility] SARS-COV-2 COVID-19 MODERNA VACCINE 2020-09-01 00:00:00 Completed [facility] SARS-COV-2 COVID-19 MODERNA 12+ YRS VACCINE 2020-09-01 00:00:00 Completed [facility] SARS-COV-2 COVID-19 MODERNA 12+ YRS VACCINE 2020-09-01 00:00:00 Completed [facility] SARS-COV-2 COVID-19 MODERNA 12+ YRS VACCINE 2020-09-01 00:00:00 Completed [facility] SARS-COV-2 COVID-19 MODERNA 12+ YRS VACCINE 2020-09-01 00:00:00 Completed [facility] SARS-COV-2 COVID-19 MODERNA 12+ YRS VACCINE 2020-09-01 00:00:00 Completed [facility] SARS-COV-2 COVID-19 MODERNA 12+ YRS VACCINE 2020-09-01 00:00:00 Completed [facility] SARS-COV-2 COVID-19 MODERNA 12+ YRS VACCINE 2020-09-01 00:00:00 Completed [facility] SARS-COV-2 COVID-19 MODERNA 12+ YRS VACCINE 2020-09-01 00:00:00 Completed [facility] SARS-COV-2 COVID-19 MODERNA 12+ YRS VACCINE 2020-09-01 00:00:00 Completed [facility] SARS-COV-2 COVID-19 MODERNA 12+ YRS VACCINE 2020-09-01 00:00:00 Completed [facility] SARS-COV-2 COVID-19 MODERNA 12+ YRS VACCINE 2020-09-01 00:00:00 Completed [facility] SARS-COV-2 COVID-19 MODERNA 12+ YRS VACCINE 2020-09-01 00:00:00 Completed [facility] SARS-COV-2 COVID-19 MODERNA 12+ YRS VACCINE 2020-09-01 00:00:00 Completed [facility] SARS-COV-2 COVID-19 MODERNA 12+ YRS VACCINE 2020-09-01 00:00:00 Completed [facility] SARS-COV-2 COVID-19 MODERNA 12+ YRS VACCINE 2020-09-01 00:00:00 Completed [facility] SARS-COV-2 COVID-19 MODERNA 12+ YRS VACCINE 2020-09-01 00:00:00 Completed [facility] SARS-COV-2 COVID-19 MODERNA 12+ YRS VACCINE 2020-09-01 00:00:00 Completed [facility] SARS-COV-2 COVID-19 MODERNA 12+ YRS VACCINE 2020-09-01 00:00:00 Completed [facility] SARS-COV-2 COVID-19 MODERNA 12+ YRS VACCINE Unknown Completed [facility] SARS-COV-2 COVID-19 MODERNA 12+ YRS VACCINE Unknown Completed [facility] SARS-COV-2 COVID-19 MODERNA 12+ YRS VACCINE Unknown Completed [facility] SARS-COV-2 COVID-19 MODERNA 12+ YRS VACCINE Unknown Completed [facility] SARS-COV-2 COVID-19 MODERNA 12+ YRS VACCINE Unknown Completed [facility] SARS-COV-2 COVID-19 MODERNA 12+ YRS VACCINE Unknown Completed [facility] SARS-COV-2 COVID-19 MODERNA 12+ YRS VACCINE Unknown Completed [facility] SARS-COV-2 COVID-19 MODERNA 12+ YRS VACCINE Unknown Completed [facility] SARS-COV-2 COVID-19 MODERNA 12+ YRS VACCINE Unknown Completed [facility] SARS-COV-2 COVID-19 MODERNA 12+ YRS VACCINE Unknown Completed [facility] SARS-COV-2 COVID-19 MODERNA 12+ YRS VACCINE Unknown Completed [facility] SARS-COV-2 COVID-19 MODERNA 12+ YRS VACCINE Unknown Completed [facility] SARS-COV-2 COVID-19 MODERNA 12+ YRS VACCINE Unknown Completed [facility] SARS-COV-2 COVID-19 MODERNA 12+ YRS VACCINE Unknown Completed [facility] SARS-COV-2 COVID-19 MODERNA 12+ YRS VACCINE Unknown Completed [facility] SARS-COV-2 COVID-19 MODERNA 12+ YRS VACCINE Unknown Completed [facility] SARS-COV-2 COVID-19 MODERNA 12+ YRS VACCINE Unknown Completed [facility] SARS-COV-2 COVID-19 MODERNA 12+ YRS VACCINE Unknown Completed [facility] SARS-COV-2 COVID-19 MODERNA 12+ YRS VACCINE Unknown Completed [facility] SARS-COV-2 COVID-19 MODERNA 12+ YRS VACCINE Unknown Completed [facility] SARS-COV-2 COVID-19 MODERNA 12+ YRS VACCINE Unknown Completed [facility] SARS-COV-2 COVID-19 MODERNA 12+ YRS VACCINE Unknown Completed [facility] SARS-COV-2 COVID-19 MODERNA 12+ YRS VACCINE Unknown Completed [facility] SARS-COV-2 COVID-19 MODERNA 12+ YRS VACCINE Unknown Completed [facility] SARS-COV-2 COVID-19 MODERNA 12+ YRS VACCINE Unknown Completed [facility] SARS-COV-2 COVID-19 MODERNA 12+ YRS VACCINE Unknown Completed [facility] Vital Signs Vital Name Observation Time Observation Value Comments S ource Systolic blood pressure 2022-08-12 21:25:00 132 mm[Hg] [facility] Diastolic blood pressure 2022-08-12 21:25:00 64 mm[Hg] [facility] Heart rate 2022-08-12 21:19:00 100 /min [facility] Body temperature 2022-08-12 21:19:00 35.5 Michelle [facility] Body height 2022-08-12 21:19:00 172.7 cm [facility] Body weight 2022-08-12 21:19:00 127.551 kg [facility] BMI 2022-08-12 21:19:00 42.76 kg/m2 [facility] Systolic blood pressure 2022-06-26 21:27:00 142 mm[Hg] [facility] Diastolic blood pressure 2022-06-26 21:27:00 84 mm[Hg] [facility] Heart rate 2022-06-26 21:20:00 107 /min [facility] Body temperature 2022-06-26 21:20:00 36.28 Michelle [facility] Respiratory rate 2022-06-26 21:20:00 18 /min [facility] Body height 2022-06-26 21:20:00 172.7 cm [facility] Body weight 2022-06-26 21:20:00 128.096 kg [facility] BMI 2022-06-26 21:20:00 42.94 kg/m2 [facility] Systolic blood pressure 2022-05-22 18:12:00 137 mm[Hg] [facility] Diastolic blood pressure 2022-05-22 18:12:00 83 mm[Hg] [facility] Heart rate 2022-05-22 18:12:00 90 /min [facility] Body temperature 2022-05-22 18:12:00 35.28 Michelle [facility] Body height 2022-05-22 18:12:00 172.7 cm [facility] Body weight 2022-05-22 18:12:00 125.919 kg [facility] BMI 2022-05-22 18:12:00 42.21 kg/m2 [facility] Systolic blood pressure 2022-03-02 18:10:00 150 mm[Hg] [facility] Diastolic blood pressure 2022-03-02 18:10:00 80 mm[Hg] [facility] Heart rate 2022-03-02 17:58:00 80 /min [facility] Body temperature 2022-03-02 17:58:00 37 Michelle [facility] Respiratory rate 2022-03-02 17:58:00 18 /min [facility] Body height 2022-03-02 17:58:00 172.7 cm [facility] Body weight 2022-03-02 17:58:00 128.504 kg [facility] BMI 2022-03-02 17:58:00 43.08 kg/m2 [facility] Procedures Procedure Date / Time Performed Performing Clinician Source BI SELF-REQUESTED SCREENING TOMOSYNTHESIS BILATERAL 2023-06-30 17:50:00 Enma Murillo [facility] AUTHORIZATION FOR RELEASE OF PHI 2023-01-12 05:01:00 Doctor Unassigned, [place] [facility] CT LOW DOSE LUNG NODULE 2022-08-12 14:31:58 Eren Hunter [facility] URINE CULTURE 2022-06-26 22:21:00 Ankur, [place] [facility] Encounters Start Date/Time End Date/Time Encounter Type Admission Type Attending Clinicians Care Facility Care Department Encounter ID Source 2023-06-30 11:22:32 2023-06-30 23:59:00 Outpatient R MAGALIS KIM [facility] [id number] [facility] 2023-06-30 11:15:00 2023-06-30 23:59:00 Hospital Encounter Magalis Kim [facility] 1.20.114 350.1.13.10 4.2.7.2.686 [id number] [facility] 2023-06-30 10:26:29 2023-06-30 11:14:00 Hospital Encounter Aaron Hunter [facility] 1.20.114 350.1.13.10 4.2.7.2.686 [id number] [facility] 2023-06-29 00:00:00 2023-06-29 00:00:00 Patient Secure Msg Doctor Unassigned, [place] [facility] 1.2840.114 350.1.13.10 4.2.7.2.686 [id number] [facility] 2023-01-12 00:00:00 2023-01-12 00:00:00 Orders Only Doctor Unassigned, [place] [facility] 1.2840.114 350.1.13.10 4.2.7.2.686 [id number] [facility] 2022-12-23 00:00:00 2022-12-23 00:00:00 Patient Secure Msg Doctor Unassigned, [place] [facility] 1.2840.114 350.1.13.10 4.2.7.2.686 [id number] [facility] 2022-10-26 00:00:00 2022-10-26 00:00:00 Patient Secure Msg Doctor Unassigned, [place] [facility] 1.840.114 350.1.13.10 4.2.7.2.686 [id number] [facility] 2022-09-02 00:00:00 2022-09-02 00:00:00 Telephone Adelaida Welch [facility] 1..114 350.1.13.10 4.2.7.2.686 [id number] [facility] 2022-08-12 08:02:13 2022-08-12 23:59:00 Outpatient R AARON HUNTER SHAWN [facility] [id number] [facility] 2022-08-12 08:02:13 2022-08-12 23:59:00 Hospital Encounter Aaron Hunter [facility] 1..114 350.1.13.10 4.2.7.2.686 [id number] [facility] 2022-08-12 15:00:00 2022-08-12 16:26:09 Office Visit Pgy2 Haley Taylor [facility] 1..114 350.1.13.10 4.2.7.2.686 [id number] [facility] 2022-08-12 00:00:00 2022-08-12 00:00:00 Outpatient R HALEY TAYLOR [facility] [id number] [facility] 2022-08-11 00:00:00 2022-08-11 00:00:00 Patient Secure Msg Doctor Unassigned, [place] [facility] 1..114 350.1.13.10 4.2.7.2.686 [id number] [facility] 2022-07-15 00:00:00 2022-07-15 00:00:00 Telephone Pgy2 [facility] 1.2.840.114 350.1.13.10 4.2.7.2.686 [id number] [facility] 2022-07-07 00:00:00 2022-07-07 00:00:00 Telephone Breaux, Jacinta [facility] 1..114 350.1.13.10 4.2.7.2.686 [id number] [facility] 2022-07-06 00:00:00 2022-07-06 00:00:00 Telephone Adelaida Welch [facility] 1..114 350.1.13.10 4.2.7.2.686 [id number] [facility] 2022-06-30 00:00:00 2022-06-30 00:00:00 Patient Secure Msg Doctor Unassigned, [place] [facility] 1..114 350.1.13.10 4.2.7.2.686 [id number] [facility] 2022-06-30 00:00:00 2022-06-30 00:00:00 Letter (Out) Adelaida Welch [facility] 1..114 350.1.13.10 4.2.7.2.686 [id number] [facility] 2022-06-26 15:30:00 2022-06-26 16:41:27 Outpatient R HALEY TAYLOR [facility] [id number] [facility] 2022-06-26 15:30:00 2022-06-26 16:41:27 Office Visit Pgy3 Haley Taylor [facility] 1.2.114 350.1.13.10 4.2.7.2.686 [id number] [facility] 2022-06-17 00:00:00 2022-06-17 00:00:00 Patient Secure Msg Doctor Unassigned, [place] [facility] 1.2.840.114 350.1.13.10 4.2.7.2.686 [id number] [facility] 2022-05-22 13:30:00 2022-05-22 14:16:56 Outpatient R PAULETTE JUNGKHAN [facility] [id number] [facility] 2022-05-22 13:30:00 2022-05-22 14:16:56 Office Visit Pgy3 Tyson Karen [facility] 1.2840.114 350.1.13.10 4.2.7.2.686 [id number] [facility] 2022-04-27 00:00:00 2022-04-27 00:00:00 Aysha Sancho [facility] 1.840.114 350.1.13.10 4.2.7.2.686 [id number] [facility] 2022-04-20 00:00:00 2022-04-20 00:00:00 Patient Secure Msg Sancho [facility] 1.2840.114 350.1.13.10 4.2.7.2.686 [id number] [facility] 2022-03-03 00:00:00 2022-03-03 00:00:00 Patient Secure Msg Doctor Unassigned, [place] [facility] 1.2840.114 350.1.13.10 4.2.7.2.686 [id number] [facility] 2022-03-02 13:30:00 2022-03-02 14:56:06 Outpatient R TEZ SANTIAGO [facility] [id number] [facility] 2022-03-02 13:30:00 2022-03-02 14:56:06 Office Visit Pgy3 Tez Santiago [facility] 1..114 350.1.13.10 4.2.7.2.686 [id number] [facility] 2022-03-02 13:30:00 2022-03-02 14:56:06 Outpatient R [facility] [id number] [facility] 2022-03-02 13:30:00 2022-03-02 14:56:06 Outpatient R PAMELA [facility] [id number] [facility] 2022-03-02 00:00:00 2022-03-02 00:00:00 Telephone BlankAdelaida lindsay [facility] .0.114 350.1.13.10 4.2.7.2.686 [id number] [facility] 2022-02-27 00:00:00 2022-02-27 00:00:00 Outpatient [facility] [id number] [facility] 2022-02-27 00:00:00 2022-02-27 00:00:00 Orders Only Doctor Unassigned, [place] [facility] .840.114 350.1.13.10 4.2.7.2.686 [id number] [facility] 2022-02-12 12:45:00 2022-02-12 14:02:50 Outpatient [facility] [id number] [facility] 2022-02-12 12:45:00 2022-02-12 14:02:50 Office Visit Provider, RomeroRmchp Alyson Kc [facility] 1.840.114 350.1.13.10 4.2.7.2.686 [id number] [facility] 2022-02-10 00:00:00 2022-02-10 00:00:00 Patient Secure Msg Doctor Unassigned, [place] [facility] 1.0.114 350.1.13.10 4.2.7.2.686 [id number] [facility] 2022-02-09 00:00:00 2022-02-09 00:00:00 Letter (Out) Adelaida Welch [facility] 1..114 350.1.13.10 4.2.7.2.686 [id number] [facility] 2022-02-06 12:31:00 2022-02-06 16:19:00 Emergency X HEATHER CHAVEZ [facility] ERT [id number] [facility] 2022-02-06 12:31:00 2022-02-06 16:19:00 Emergency Heather Chavez [facility] 1..114 350.1.13.10 4.2.7.2.686 [id number] [facility] 2022-02-03 09:37:18 2022-02-03 23:59:00 Outpatient R ENMA MURILLO [facility] [id number] [facility] 2022-02-03 09:37:18 2022-02-03 23:59:00 Hospital Encounter Enma Murillo [facility] ..114 350.1.13.10 4.2.7.2.686 [id number] [facility] 2022-01-30 00:00:00 2022-01-30 00:00:00 Telephone Enma Murillo [facility] 1..114 350.1.13.10 4.2.7.2.686 [id number] [facility] 2022-01-29 00:00:00 2022-01-29 00:00:00 Patient Secure Msg Doctor Unassigned, [place] [facility] 1.0.114 350.1.13.10 4.2.7.2.686 [id number] [facility] 2022-01-06 13:45:00 2022-01-06 14:00:00 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 Jose L Curran [facility] 1.2.840.114 350.1.13.10 4.2.7.2.686 [id number] [facility] [id number] [facility] 2022-01-06 13:45:00 2022-01-06 13:45:00 Outpatient R KLARISSA [facility] [id number] [facility] 2022-01-06 13:45:00 2022-01-06 13:45:00 Outpatient R KLARISSA [facility] [id number] [facility] 2022-01-06 13:00:00 2022-01-06 13:29:55 Outpatient ALIVIA NAZARIO [facility] [id number] [facility] 2022-01-06 13:00:00 2022-01-06 13:29:55 Office Visit Pgy3 Alivia Fernandez [facility] 1..840.114 350.1.13.10 4.2.7.2.686 [id number] [facility] 2022-01-05 00:00:00 2022-01-05 00:00:00 Patient Secure Msg Doctor Unassigned, [place] [facility] 1.2.840.114 350.1.13.10 4.2.7.2.686 [id number] [facility] 2022-01-02 13:12:09 2022-01-02 23:59:00 Outpatient TEZ GODINEZ [facility] [id number] [facility] 2022-01-02 13:12:09 2022-01-02 23:59:00 Outpatient TEZ GODINEZ [facility] [id number] [facility] 2022-01-02 13:00:00 2022-01-02 23:59:00 Hospital Encounter Tez Santiago [facility] 1.2.840.114 350.1.13.10 4.2.7.2.686 [id number] [facility] 2021-12-17 00:00:00 2021-12-17 00:00:00 Outpatient R CM SANTIAGOO [facility] [id number] [facility] 2021-12-15 00:00:00 2021-12-15 00:00:00 Telephone Enma Mruillo [facility] 1.2.840.114 350.1.13.10 4.2.7.2.686 [id number] [facility] 2021-12-11 00:00:00 2021-12-11 00:00:00 Patient Secure Msg Doctor Unassigned, [place] [facility] 1.2.840.114 350.1.13.10 4.2.7.2.686 [id number] [facility] 2021-12-08 13:00:00 2021-12-08 13:15:00 Office Visit Pgy3 Pamela [facility] 1.2.840.114 350.1.13.10 4.2.7.2.686 [id number] [facility] 2021-12-08 13:00:00 2021-12-08 13:00:00 Outpatient R SANTIAGO [facility] [id number] [facility] 2021-12-08 13:00:00 2021-12-08 13:00:00 Outpatient R PAMELA [facility] [id number] [facility] 2021-12-08 13:00:00 2021-12-08 13:00:00 Outpatient R [facility] [id number] [facility] 2021-12-08 00:00:00 2021-12-08 00:00:00 Orders Only Doctor Unassigned, [place] [facility] 1.840.114 350.1.13.10 4.2.7.2.686 [id number] [facility] 2021-11-27 00:00:00 2021-11-27 00:00:00 Telephone Enma Murillo [facility] 1.840.114 350.1.13.10 4.2.7.2.686 [id number] [facility] 2021-11-25 00:00:00 2021-11-25 00:00:00 Telephone Enma Murillo [facility] 1.840.114 350.1.13.10 4.2.7.2.686 [id number] [facility] 2021-11-14 15:45:00 2021-11-14 16:55:36 Outpatient R ENMA MURILLO [facility] [id number] [facility] 2021-11-14 15:45:00 2021-11-14 16:55:36 Outpatient R ENMA MURILLO [facility] [id number] [facility] 2021-11-14 15:45:00 2021-11-14 16:55:36 Office Visit Enma Murillo [facility] CH[facility] 1.840.114 350.1.13.10 4.2.7.2.686 [id number] [facility] 2021-11-14 00:00:00 2021-11-14 00:00:00 Orders Only Doctor Unassigned, [place] [facility] 1.840.114 350.1.13.10 4.2.7.2.686 [id number] [facility] 2021-10-15 09:18:00 2021-10-15 15:11:00 Emergency Priya Stephens [facility] 1.2.840.114 350.1.13.10 4.2.7.2.686 [id number] [facility] 2021-10-15 09:18:00 2021-10-15 15:11:00 Emergency X PRIYA STEPHENS [facility] [id number] [facility]
[2023-09-10 21:19] LABS: Absolute Lymphocytes (CBC) 3.5 K/uL (0.7-4.9); Hematocrit 40.7 % (36.0-45.0); Lymphocytes % 32.2 % (15.3-44.8); MCV 83.2 fL (80-100); MPV 9.1 fL (7.6-11.3); Platelets 269 thou/uL (152-406); RBC Red Blood Cell Count 4.89 M/uL (3.86-4.86)
[2023-09-10 21:31] LABS: Magnesium 2.2 mg/dL (1.6-2.4); Potassium 3.5 mEq/L (3.5-5.1)
--- NOTE | 2023-09-10 21:34 | RAD REPORT ---
EXAM DESCRIPTION: RAD - Chest Pa And Lat (2 Views) - 09/10/2023 9:14 pm CLINICAL HISTORY: Cough;Chest pain COMPARISON: CHEST PA AND LAT 2 VIEW dated 12/04/2014 FINDINGS: Lines: None. Lungs: No evidence of edema or pneumonia. Pleural: No significant pleural effusions or pneumothorax. Cardiac: The heart size is within normal limits. Mediastinum: Within normal limits. Bones: No acute fractures. Other: None IMPRESSION: No acute cardiopulmonary disease.
--- NOTE | 2023-09-10 22:42 | ER ---
Nurse's Notes [facility] Name: Amita Giang Age: 43 yrs Sex: Female : 1980 Arrival Date: 09/10/2023 Time: 20:21 Bed 17 Private MD: Diagnosis: SARS-associated coronavirus as the cause of diseases classified elsewhere Presentation: 09/10 20:39 Chief complaint: Patient states: tested positive with Covid Wednesday, persistent cough rv triggering nausea and vomiting since Wednesday, with SOB. prescribed with Paxlovid, Zofran, albuterol inhaler, and Z-Pack(started today) from PCP. Coronavirus screen: Client reports previous positive COVID test result. Ebola Screen: No symptoms or risks identified at this time. Initial Sepsis Screen: Does the patient meet any 2 criteria? No. Patient's initial sepsis screen is negative. Does the patient have a suspected source of infection? No. Patient's initial sepsis screen is negative. Risk Assessment: Do you want to hurt yourself or someone else? Patient reports no desire to harm self or others. Onset of symptoms was September 10, 2023. 20:39 Method Of Arrival: Ambulatory rv 20:39 Acuity: JOSE ALBERTO 3 rv Triage Assessment: 20:41 General: Appears uncomfortable, Behavior is calm, cooperative. Pain: Denies pain. rv Neuro: Level of Consciousness is awake, alert, obeys commands, Oriented to person, place, time, situation. Cardiovascular: Capillary refill < 3 seconds Patient's skin is warm and dry. Respiratory: Airway is patent Respiratory effort is even, unlabored. GI: Reports nausea, vomiting. : No signs and/or symptoms were reported regarding the genitourinary system. Derm: Skin is intact. 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 - Social history:: Smoking status: Patient denies any tobacco usage or history of. Screenin:43 [facility] ED Fall Risk Assessment (Adult) History of falling in the last 3 months, rv including since admission No falls in past 3 months (0 pts) Score/Fall Risk Level 0 - 2 = Low Risk Oriented to surroundings, Maintained a safe environment, Educated pt \T\ family on fall prevention, incl call for assistance when getting out of bed, Assessed \T\ reinforced patient's understanding of fall precautions. Abuse screen: Denies threats or abuse. Denies injuries from another. Nutritional screening: No deficits noted. Tuberculosis screening: No symptoms or risk factors identified. Assessment: 20:57 General: Appears uncomfortable, ill, well groomed, well developed, well nourished, me1 Behavior is calm, cooperative, appropriate for age, Reports feeling ill for > 3 days, fatigue for >3 days, dx with covid on Wednesday. Reports cough/congestion, n/v, fever, body aches. 20:57 Pain: Denies pain. Neuro: Level of Consciousness is awake, alert, obeys commands, me1 Oriented to person, place, time, situation, Appropriate for age. Cardiovascular: Capillary refill < 3 seconds Patient's skin is warm and dry. Respiratory: Reports cough that is non-productive, persistent Airway is patent Trachea midline Respiratory effort is even, unlabored, Respiratory pattern is regular, symmetrical. GI: Reports nausea, vomiting. Vital Signs: 20:39 BP 158 / 100; Pulse 105; Resp 20; Temp 98.4; Pulse Ox 100% ; Weight 136.08 kg; Height 5 rv ft. 7 in. ; 21:33 BP 121 / 84; Pulse 97; Resp 24; Pulse Ox 99% on R/A; me1 23:18 BP 107 / 56; Pulse 86; Resp 17; Temp 98; Pulse Ox 99% on R/A; rv 20:39 Body Mass Index 46.99 (136.08 kg, 170.18 cm) rv ED Course: 20:23 Patient arrived in ED. im 20:25 Steven De Guzman MD is Attending Physician. ec2 20:25 Jaci Suh PA-C is PHCP. sb4 20:25 Steven De Guzman MD is Attending Physician. sb4 20:41 Triage completed. rv 20:41 Arm band placed on right wrist. rv 20:43 No provider procedures requiring assistance completed. rv 20:48 Ashley Hayes, LOGAN is Primary Nurse. me1 20:57 Patient has correct armband on for positive identification. Bed in low position. Call me1 light in reach. Side rails up X2. Provided Education on: POC. Verbalized understanding. . 21:07 Inserted saline lock: 22 gauge in left antecubital area, using aseptic technique. me1 21:12 BMP Sent. me1 21:13 CBC with Diff Sent. me1 21:13 Magnesium Sent. me1 21:16 XRAY Chest Pa And Lat (2 Views) In Process Unspecified. EDMS 22:38 Steven De Guzman MD is Attending Physician. sb4 23:19 IV discontinued, intact, bleeding controlled, No redness/swelling at site. Pressure rv dressing applied. Administered Medications: 21:24 Drug: NS 0.9% IV 1000 ml IV at 1 bolus Per protocol; 1000 mL bolus Route: IV; Rate: 1 me1 bolus; Site: left antecubital; 21:24 Drug: Ondansetron IVP 4 mg IVP once; over 2 minutes Route: IVP; Site: left antecubital; me1 21:30 Follow up: Response: No adverse reaction me1 21:40 Drug: NS 0.9% IV 1000 ml IV at 1 bolus Per protocol; 1000 mL bolus Route: IV; Rate: 1 me1 bolus; Site: left antecubital; 21:40 Drug: Decadron - Dexamethasone IVP 10 mg IVP once Route: IVP; Site: left antecubital; me1 21:51 Follow up: Response: No adverse reaction me1 22:41 Drug: Levalbuterol Inhalation 1.25 mg Inhalation once Route: Inhalation; rv 23:18 Follow up: Response: No adverse reaction; Marked relief of symptoms rv Medication: 20:43 VIS not applicable for this client. rv Outcome: 22:41 Discharge ordered by . sb4 23:19 Discharged to home ambulatory, rv 23:19 Condition: good 23:19 Discharge instructions given to patient, Instructed on discharge instructions, follow up and referral plans. medication usage, Demonstrated understanding of instructions, follow-up care, medications, Prescriptions given X 4, 23:19 Patient left the ED. rv Signatures: Dispatcher [employer] EDMS Crow De Los Santos RN RN rv Jaci Suh, PA-C PA-C sb4 Nidhi Franklin Michelle, RN RN me1 Steven De Guzman MD MD ec2 Corrections: (The following items were deleted from the chart) 20: 20:41 PSHx: None; rv rv 20:45 20:39 Chief complaint: Patient states: tested positive with Covid Wednesday, persistent rv cough triggering nausea and vomiting since Wednesday, with SOB. rv 20:59 20:57 General: Appears uncomfortable, ill, well groomed, well developed, well me1 nourished, Behavior is calm, cooperative, appropriate for age, Reports me1
--- NOTE | 2023-09-10 22:42 | EDPHYS ---
Physician Documentation [facility] Name: Amita Giang Age: 43 yrs Sex: Female : 1980 Arrival Date: 09/10/2023 Time: 20:21 Bed 17 Private MD: ED Physician Steven De Guzman HPI: 09/10 21:35 This 43 yrs old Female presents to ER via Ambulatory with complaints of COVID positive. sb4 21:35 patient reports feeling ill for about 1 week now with cough, congestion, weakness, sb4 nausea, vomiting. tested positive for covid 2 days later. continued feeling poorly so PCP prescribed paxlovid, antitussive, zofran, albuterol, zpack. states still feeling terrible, cannot hold anything down. 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 - Social history:: Smoking status: Patient denies any tobacco usage or history of. ROS: 21:35 Cardiovascular: Negative for chest pain, palpitations, and edema, sb4 21:35 Constitutional: Positive for fatigue, malaise, 21:35 Respiratory: Positive for cough, dyspnea on exertion, 21:35 Abdomen/GI: Positive for nausea and vomiting, 21:35 All other systems are negative, Exam: 21:35 Constitutional: This is a well developed, well nourished patient who is awake, alert, sb4 and in no acute distress. Head/Face: Normocephalic, atraumatic. Eyes: Extra-ocular motions intact. Periorbital areas with no swelling, redness, or edema. ENT: Mucous membranes moist. Cardiovascular: Regular rate and rhythm with a normal S1 and S2. Respiratory: Lungs have equal breath sounds bilaterally, clear to auscultation and percussion. No rales, rhonchi or wheezes noted. No increased work of breathing, no retractions or nasal flaring. Abdomen/GI: Soft, non-tender, no distension. Skin: Warm, dry with normal turgor. Normal color with no rashes, no lesions, and no evidence of cellulitis. MS/ Extremity: Pulses equal, no cyanosis. Neurovascular intact. Full, normal range of motion. Vital Signs: 20:39 BP 158 / 100; Pulse 105; Resp 20; Temp 98.4; Pulse Ox 100% ; Weight 136.08 kg; Height 5 rv ft. 7 in. ; 21:33 BP 121 / 84; Pulse 97; Resp 24; Pulse Ox 99% on R/A; me1 23:18 BP 107 / 56; Pulse 86; Resp 17; Temp 98; Pulse Ox 99% on R/A; rv 20:39 Body Mass Index 46.99 (136.08 kg, 170.18 cm) rv MDM: 20:46 Patient medically screened. sb4 22:41 Data reviewed: vital signs, nurses notes, lab test result(s), radiologic studies, and sb4 as a result, I will discharge patient. Counseling: I had a detailed discussion with the patient and/or guardian regarding the historical points, exam findings, and any diagnostic results supporting the discharge/admit diagnosis, lab results, radiology results, to return to the emergency department if symptoms worsen or persist or if there are any questions or concerns that arise at home. 09/11 18:46 ED course: obtained ONE blank prescription from [facility] to write ONE prescription for a sb4 nebulizer. 09/10 20:59 Order name: BMP; Complete Time: 21:32 sb4 09/10 20:59 Order name: CBC with Diff; Complete Time: 21:23 sb4 09/10 20:59 Order name: Magnesium; Complete Time: 21:32 sb4 09/10 20:59 Order name: XRAY Chest Pa And Lat (2 Views); Complete Time: 21:37 sb4 09/10 20:59 Order name: Cardiac monitoring; Complete Time: 21:33 sb4 09/10 20:59 Order name: IV Saline Lock; Complete Time: 21:12 sb4 09/10 20:59 Order name: Labs collected and sent; Complete Time: 21:12 sb4 09/10 20:59 Order name: O2 Sat Monitoring; Complete Time: 21:12 sb4 09/10 21:37 Order name: PO challenge; Complete Time: 21:44 sb4 Administered Medications: 09/10 21:24 Drug: NS 0.9% IV 1000 ml IV at 1 bolus Per protocol; 1000 mL bolus Route: IV; Rate: 1 me1 bolus; Site: left antecubital; 21:24 Drug: Ondansetron IVP 4 mg IVP once; over 2 minutes Route: IVP; Site: left antecubital; me1 21:30 Follow up: Response: No adverse reaction me1 21:40 Drug: NS 0.9% IV 1000 ml IV at 1 bolus Per protocol; 1000 mL bolus Route: IV; Rate: 1 me1 bolus; Site: left antecubital; 21:40 Drug: Decadron - Dexamethasone IVP 10 mg IVP once Route: IVP; Site: left antecubital; me1 21:51 Follow up: Response: No adverse reaction me1 22:41 Drug: Levalbuterol Inhalation 1.25 mg Inhalation once Route: Inhalation; rv 23:18 Follow up: Response: No adverse reaction; Marked relief of symptoms rv Disposition Summary: 09/10/23 22:41 Discharge Ordered Notes: Location: Home sb4 Problem: an ongoing problem sb4 Symptoms: have improved sb4 Condition: Stable sb4 Diagnosis - SARS-associated coronavirus as the cause of diseases classified elsewhere sb4 Followup: sb4 - With: Emergency Department - When: As needed - Reason: Trouble breathing, Worsening of condition Discharge Instructions: - Discharge Summary Sheet sb4 - Cool Mist Vaporizer sb4 - 10 Things You Can Do to Manage Your COVID-19 Symptoms at Home - [facility] (02/07/2021) sb4 - COVID-19: What to Do If You Are Sick - [facility] (10/14/2021) sb4 Forms: - Medication Reconciliation Form sb4 - Thank You Letter sb4 - Antibiotic Education sb4 - Prescription Opioid Use sb4 - Patient Portal Instructions sb4 - Leadership Thank You Letter sb4 Prescriptions: - guaifenesin 400 mg Oral tablet - take 1 tablet ORAL route 4 times per day as needed for congestion; 30 tablet; sb4 Refills: 0, Product Selection Permitted - Albuterol Sulfate 2.5 mg /3 mL (0.083 %) Inhalation Solution for Nebulization - inhale 1 unit NEBULIZATION route every 8 hours As needed; 20 unit; Refills: 0, sb4 Product Selection Permitted - Medrol (Mike) 4 mg Oral Tablets, Dose Pack - take 1 tablet ORAL route as directed - follow package instructions; 1 packet; sb4 Refills: 0, Product Selection Permitted Signatures: Dispatcher [employer] Crow Young RN RN rv Jaci Suh PA-C PA-C sb4 Ashley Hayes RN RN me1 Corrections: (The following items were deleted from the chart) 20:42 20:41 PSHx: None; rv rv 21:36 21:35 patient reports feeling ill for about 1 week now with cough, congestion, sb4 weakness, nausea, vomiting. tested positive for . sb4
[2023-09-11 00:16] VITALS: BP 107/56; TEMP 98; O2SAT 99
== END ==
LOC: ER 20:21
DX: U07.1 COVID-19 (principal); I10 Essential (primary) hypertension
CPT/HCPCS: 85025; 80048; 36415; 83735; 71046; 96375; 96374; 99285; J7614; J1100; J2405; J7030 ×2